=== PATIENT | female | born 1935 | race Asian ===

== ENCOUNTER 2020-08-11 15:58 | Inpatient (IN) | payer MEDICARE, OTHER ==
[~2020-08-11] VITALS: Ht 170.2 cm; Wt 52.2 kg
[2020-08-11] MEDS ORDERED: ONDANSETRON HCL/PF 4 MG/2 ML VIAL IVP ONE (17:00)
[2020-08-11] MEDS ORDERED: IV NS 0.9% 1,000 ML BAG IV ONE (17:00)
[2020-08-11] MEDS ORDERED: ONDANSETRON HCL/PF 4 MG/2 ML VIAL ONE (17:06)
[2020-08-11 17:23] LABS: BASOPHILS % (AUTO) 0.1 % (0.0-2.0); EOSINOPHILS % (AUTO) 0.1 % (0.0-6.0); HEMATOCRIT 30 % (33-45); HEMOGLOBIN 9.8 g/dL (11.5-14.8); LYMPHOCYTES # (AUTO) 0.3 /CMM (0.8-4.8); LYMPHOCYTES % (AUTO) 4.3 % (20.0-44.0); MEAN CORPUSCULAR HGB CONC 33 g/dl (31.0-36.0); MEAN CORPUSCULAR VOLUME 97 fL (82-100); MONOCYTES # (AUTO) 0.6 /CMM (0.1-1.30); MONOCYTES % (AUTO) 7.8 % (2.0-12.0); NEUTROPHILS # (AUTO) 6.2 /CMM (1.8-8.9); NEUTROPHILS % (AUTO) 87.7 % (43.0-81.0); PLATELET COUNT (AUTO) 201 /CMM (150-450); RED BLOOD CELL COUNT(AUTO) 3.05 MIL/uL (4.0-5.2)
--- NOTE | 2020-08-11 17:25 | NUR ---
PT AT [facility]
[2020-08-11 17:37] LABS: ALANINE AMINOTRANSFERASE 13 U/L (12-78); ALBUMIN 3.3 g/dL (3.4-5.0); ALKALINE PHOSPHATASE 90 U/L (46-116); ASPARTATE AMINOTRANSFERASE 21 U/L (15-37); BILIRUBIN,DIRECT 0.2 mg/dL (0.0-0.2); BILIRUBIN,TOTAL 0.9 mg/dL (0.2-1.0); CALCIUM, SERUM 8.6 mg/dL (8.5-10.1); CARBON DIOXIDE 23 mmol/L (21-32); CHLORIDE 107 mmol/L (98-107); GLUCOSE 148 mg/dL (74-106); LIPASE 72 U/L (73-393); POTASSIUM 3.6 mmol/L (3.5-5.1); SODIUM SERUM 147 mmol/L (136-145); TOTAL PROTEIN, SERUM 7.3 g/dL (6.4-8.2); UREA NITROGEN, BLOOD 62 mg/dL (7-18)
--- NOTE | 2020-08-11 18:15 | NUR ---
CALLED DR. WELCH ON-CALL FOR SURGERY, TRANSFERRED CALL TO DR. LAZAR.
--- NOTE | 2020-08-11 18:15 | NUR ---
Umang gilbert in ED - 08/11/20 at 1857 by AZAR CALLED RE[facility] ON-CALL SURGERY, TRANSFERRED CALL TO DR. LAZAR.
[2020-08-11] MEDS ORDERED: PIPERACILLIN /TAZOBACTAM 2.25 G in IV D5W 50 ML IV ONE (18:30)
[2020-08-11] MEDS ORDERED: CALC-1143 PO (18:38)
[2020-08-11] MEDS ORDERED: FURO-145 PO (18:38)
[2020-08-11] MEDS ORDERED: ROSU20TA2 PO (18:38)
[2020-08-11] MEDS ORDERED: MEMA10TA PO (18:38)
[2020-08-11] MEDS ORDERED: LOSA25TA27 PO (18:38)
[2020-08-11] MEDS ORDERED: CHOL200010 PO (18:38)
[2020-08-11] MEDS ORDERED: DONE10TA44 PO (18:38)
[2020-08-11] MEDS ORDERED: ALEN70TA69 PO (18:38)
[2020-08-11] MEDS ORDERED: NAPR-1009 PO (18:38)
--- NOTE | 2020-08-11 19:10 | NUR ---
pt ambulated to bathroom with min assist
[2020-08-11 19:21] LABS: BILIRUBIN,URINE SMALL (NEGATIVE); BLOOD, URINE Large Ery/uL (NEGATIVE); COLOR,URINE DARK YELLOW (YELLOW); LEUKOCYTE ESTERASE ,URINE Trace (NEGATIVE); NITRITE, URINE Negative (NEGATIVE); PROTEIN,URINE 100 mg/dl (NEGATIVE); UGLUCOSE Negative (NEGATIVE); UROBILINOGEN,URINE 0.2 EU/dL (0.2)
--- NOTE | 2020-08-11 19:31 | NUR ---
LIANNA (VACCINES SOLUTIONS SPECIALIST) CONTACT INFORMATION: [phone]
[2020-08-11 19:32] LABS: RBC,URINE 21-50 /HPF (0-2)
[2020-08-11 19:33] LABS: BACTERIA,URINE 2+ /HPF (None Seen); SQUAMOUS EPITHELIAL CELL,UR Few /HPF (None Seen)
[2020-08-11 20:00] VITALS: BP 99/53
--- NOTE | 2020-08-11 20:01 | NUR ---
ATTEMPTED TO CONTACT INFANT BABYSITTER LIANNA ([phone]) FOR MD TO MD WITH DR. SOLIS. LEFT MESSAGE, WILL FOLLOW UP
[2020-08-11] MEDS ORDERED: PIPERACILLIN /TAZOBACTAM 3.375 G VIAL IV ONE (20:07)
--- NOTE | 2020-08-11 20:10 | NUR ---
Umang gilbert in ED - 08/11/20 at 2050 by SIMEON BED ASSIGNMENT 107 MS
--- NOTE | 2020-08-11 20:24 | NUR ---
ATTEMPTED TO INSERT NGT BUT NOT SUCCESSFULL. WILL TRY AGAIN
[2020-08-11 20:33] VITALS: BP 99/53
[2020-08-11] MEDS ORDERED: Z GUARD REMEDY 2 OZ OINT TP PRN (21:00)
[2020-08-11] MEDS ORDERED: ZOLPIDEM TARTRATE 5 MG TABLET PO PRN (21:00)
[2020-08-11] MEDS ORDERED: HYDROCODONE/APAP 5/325MG TABLET PO PRN (21:00)
[2020-08-11] MEDS ORDERED: MAGNESIUM HYDROXIDE 30 ML UDC PO PRN (21:00)
[2020-08-11] MEDS ORDERED: ACETAMINOPHEN 325 MG TABLET PO PRN (21:00)
[2020-08-11] MEDS ORDERED: MAG HYDROX/AL HYDROX/SIMETH 30 ML UDC PO PRN (21:00)
[2020-08-11] MEDS ORDERED: ONDANSETRON HCL/PF 4 MG/2 ML VIAL IVP PRN (21:00)
--- NOTE | 2020-08-11 22:10 | NUR ---
report given to jayson morejon for jairo
--- NOTE | 2020-08-11 22:20 | NUR ---
PT BEING TRANSPORTED TO UNIT ON [facility] WITH EMT AT BEDSIDE. PT IS IN STABLE CONDITION FOR TRANSPORT.
--- NOTE | 2020-08-12 00:33 | NUR ---
MS/TRANSPLANT NURSE PRACTITIONER NOTE Patient arrived via gurney 2032. VS: BP99/53 T97.1 P80 R18 [id number]% on room air. Patient is A/O x2, on bedrest. Breath sounds even, clear, unlabored. No signs of acute distress or SOB. Patient denies pain, nausea, vomiting, diarrhea. Afebrile. Mucous membranes pink and moist. Lips intact. PERRLA. Sensations intact. No numbness or tingling. CRP <3seconds. Skin warm, pink, dry, intact. No edema. IV site RFA 22g running IV fluids as ordered. No signs of redness or infiltration. NG tube in place at 57 cm, connected to intermittent suction. Gastric content is brown. Addendum: 08/12/20 at 0100 by CATHY BHAKTA RN *Note was not finished. Accidentally saved. Patient is incontinent. Last BM was 08/11. Abdomen small, round, non-tender. BS hypoactive. Admission documented. Belongings and valuables documented. Bed in low position, wheels locked, side rails up x2, call light within reach. Bed alarm on.
[2020-08-12] MEDS: IV D5/0.45 NACL 1,000 ML IV PRN ×2 (03:17→12:25)
[2020-08-12 06:24] LABS: BASOPHILS % (AUTO) 0.1 % (0.0-2.0); EOSINOPHILS % (AUTO) 0.2 % (0.0-6.0); HEMATOCRIT 28 % (33-45); HEMOGLOBIN 9.2 g/dL (11.5-14.8); LYMPHOCYTES # (AUTO) 0.3 /CMM (0.8-4.8); LYMPHOCYTES % (AUTO) 4.8 % (20.0-44.0); MEAN CORPUSCULAR HGB CONC 33 g/dl (31.0-36.0); MEAN CORPUSCULAR VOLUME 95 fL (82-100); MONOCYTES # (AUTO) 0.5 /CMM (0.1-1.30); MONOCYTES % (AUTO) 7.9 % (2.0-12.0); NEUTROPHILS # (AUTO) 5.6 /CMM (1.8-8.9); PLATELET COUNT (AUTO) 175 /CMM (150-450); WHITE BLOOD COUNT (AUTO) 6.4 K/uL (4.3-11.0)
--- NOTE | 2020-08-12 06:46 | NUR ---
MS/RN CLOSING NOTE Patient is A/O x2, on bedrest. Breath sounds even, clear, unlabored. No signs of acute distress or SOB. PERRLA. Sensations intact. No numbness or tingling. CRP <3seconds. Skin warm, pink, dry, intact. No edema. IV site RFA 22g running IV fluids as ordered. No signs of redness or infiltration. NG tube in place at 57 cm, output 1750 ml, brown, connected to intermittent suction. Patient is incontinent. 1 BM noted, brown and soft. Bed in low position, wheels locked, side rails up x2, call light within reach.
[2020-08-12 07:00] LABS: CALCIUM, SERUM 7.5 mg/dL (8.5-10.1); CARBON DIOXIDE 22 mmol/L (21-32); CHLORIDE 107 mmol/L (98-107); CREATININE 3.6 mg/dL (0.6-1.3); GLUCOSE 147 mg/dL (74-106); MAGNESIUM 2.2 mg/dL (1.8-2.4); PHOSPHORUS 4.5 mg/dL (2.5-4.9); POTASSIUM 3.2 mmol/L (3.5-5.1); SODIUM SERUM 147 mmol/L (136-145); UREA NITROGEN, BLOOD 79 mg/dL (7-18)
[2020-08-12 07:20] LABS: CHOLESTEROL 83 mg/dL (<200); HDL CHOLESTEROL 52 mg/dL (40-60); LDL 25 mg/dL (0-99); THYROID STIMULATING HORMONE 2.235 uIU/mL (0.358-3.74); TRIGLYCERIDES 63 mg/dL (30-150)
--- NOTE | 2020-08-12 07:30 | NUR ---
RN OPENING NOTE Patient is resting in bed, A/o x2, showing no signs of acute distress or SOB, stable on RA. NGT was found on the floor. When I asked the patient if she pulled out the NG she stated, "I don't know, I don't remember." Patient is able to state her name and knows that she is in the hospital. Will notify MD and reinsert NG tube. RFA#22g is clean and intact running D51/2NS @100mml/hr. Bed is in lowest position, side rails x3 in upright position, call light is within reach, fall safety and aspiration precautions enforced. Will continue with plan of care.
[2020-08-12 08:00] VITALS: BP 108/65
[2020-08-12] MEDS ORDERED: PANTOPRAZOLE 40 MG VIAL IV SCH (09:00)
--- NOTE | 2020-08-12 10:38 | NUR ---
RN NOTE Ok per Dr. Daley to order Potassium IV 20meq to replace a potassium level of 3.2. Orders repeated back and will carry out.
--- NOTE | 2020-08-12 11:11 | NUR ---
RN NOTE NGT inserted in the left nare 57cm. CXR confirmed placement: IMPRESSION: 1. Nasogastric tube in the stomach. 2. Slight interstitial pneumonitis vs congestion similar to 08/11/2020 Will start patient on low intermittent suction as ordered.
--- NOTE | 2020-08-12 12:00 | NUR ---
RN NOTE Patient is desturating to 88% on RA. PAtient placed on 3L NC saturating 92-94%. Patient is from [place], only rapid test was done upon admission. No record of PCR from chart. Called [facility] and social secretary said they will call me back if there is a nurse available to speak with me in regards to PCR test. Per Dr. Daley, if PCR is not done, then order PCR and transfer to covid floor for PUI. Will continue with plan of care.
[2020-08-12] MEDS: POTASSIUM CL. PREMIX PERIPHER. 50 ML IV SCH ×2 (12:22→13:30)
[2020-08-12 13:00] VITALS: BP 110/76
[2020-08-12] MEDS: MORPHINE SULFATE INJ 2 MG/ML DISP.SYRIN IV PRN (13:21)
--- NOTE | 2020-08-12 14:00 | NUR ---
RN NOTE COVID PCR swab done at [facility] was done on 08/06. Per protocol, patient needs a more recent PCR swab. PCR ordered and will transfer patient To [facility] room 112. aware.
--- NOTE | 2020-08-12 14:14 | NUR ---
COVID PCR SPECIMEN SENT TO LAB
[2020-08-12 14:16] VITALS: BP 104/60
--- NOTE | 2020-08-12 15:49 | NUR ---
RN NOTE Patient transferred to [facility] room 112. Patient is a/ox2, in no acute distress, on 3L NC saturating 93-94%. Endorsed to Alonzo PEPE for LUCINDA.
[2020-08-12 20:00] VITALS: BP 100/56
--- NOTE | 2020-08-12 20:00 | NUR ---
print and pattern designer opening note Received pt in bed. asleep but easily arousable .Breathing even and unlabored in 3lpm of 02 andres ma. ngt noted on left nare marking at 55, on low intermittent suction. Small amount of brown drainage noted on tubing Denies any pain or discomfort. rfa #22 noted patent and intact. IV fluids infusing well. Kept clean and dry. Repositioned. Bed in lowest position. Call light within reach.Will continue to monitor.
[2020-08-13] VITALS: BP 111/57
--- NOTE | 2020-08-13 00:03 | NUR ---
wood patternmaker apprentice note Informed Dr. Castillo regarding patient's VTE score of 3. Per MD, doctor in am will decide if he/she wants to start pt on anticoagualant. Will endorse to am nurse.
[2020-08-13] MEDS: IV D5/0.45 NACL 1,000 ML IV PRN ×2 (01:16→14:00)
[2020-08-13 04:00] VITALS: BP 106/54
--- NOTE | 2020-08-13 06:45 | NUR ---
ortho rn closing note Patient in bed, sleeping but easily arousable. A/0 x2. Breathing even and unlabored with no sob or acute distress noted. Denies any pain or discomfort. RFA #22g patent and intact. Iv fluids infusing well. ngtube patent. small amount of output. unable to accurately measure , output is just in the tubings. Marking at 55, tip of nose. All needs rendered. Call light within reach. Srx2 up. Bed in lowest position. Repositioned q2. Will endorse to am nurse for continuity of care.
--- NOTE | 2020-08-13 07:30 | NUR ---
Tele-monitor reading is SR 85-88
--- NOTE | 2020-08-13 07:30 | NUR ---
RN OPENING NOTE Received patient in bed, A/O x 3, on NC @3L, tolerating well, SPO2 is 100%, O2 monitor at bed site, no SOB or distress noted, denies pain or discomfort at this moment, NG tuber noted in patient nares, connected to INT LOW suction, draining brown yellow gastric juice. NPO status noted, IV line present on R FA, intact , patent, flushes well, no s/sx of infiltration or infection noted. Safety measures in place, HOB elevated, bed is locked, in lowest position, bed alarm is on, IV pump checked, calm light in reach, will cont to monitor
[2020-08-13 08:00] VITALS: BP 112/59
--- NOTE | 2020-08-13 08:30 | NUR ---
Per Dr Teto SALDIVAR to titrate O2 to 2.0, tolerated well, SPO@ remains 100%, no distress or SOB noted, will cont to monitor frequently
[2020-08-13] MEDS ORDERED: PANTOPRAZOLE 40 MG VIAL IV SCH (09:00)
[2020-08-13] MEDS: FAMOTIDINE/PF INJ 20 MG/2 ML VIAL IV SCH (09:05)
[2020-08-13] MEDS ORDERED: BARIUM SULFATE 98% 135 ML SUSP.RECON PO ONE (11:01)
[2020-08-13] MEDS ORDERED: DIATR MEGLU/DIATRIZOATE SODIUM 120 ML BOTTLE (GASTROGRAPHIN) ONE ×2 (11:01→13:51)
--- NOTE | 2020-08-13 11:15 | NUR ---
PATIENT WENT TO FOLLOW THROUGH BOWEL PROCEDURE VIA BED WITH XRAY TECHNICIANS
--- NOTE | 2020-08-13 11:30 | NUR ---
PATIENT CLEANED AND REPOSITION, LINEN AND GOWN CHANGED
[2020-08-13 11:56] LABS: CALCIUM, SERUM 6.6 mg/dL (8.5-10.1); CARBON DIOXIDE 21 mmol/L (21-32); CHLORIDE 104 mmol/L (98-107); CREATININE 4.8 mg/dL (0.6-1.3); GLUCOSE 116 mg/dL (74-106); POTASSIUM 3.6 mmol/L (3.5-5.1); SODIUM SERUM 141 mmol/L (136-145)
[2020-08-13 11:59] LABS: UREA NITROGEN, BLOOD 106 mg/dL (7-18)
[2020-08-13 12:00] VITALS: BP 105/59
[2020-08-13 13:38] LABS: IRON, SERUM 18 ug/dl (50-175); TOTAL IRON BINDING CAPACITY 158 ug/dl (250-450)
--- NOTE | 2020-08-13 14:10 | NUR ---
Patient will have xray of small bowel follow though at bed site, [place] at bed site
--- NOTE | 2020-08-13 15:30 | NUR ---
PER RADIOLOGY PATY STOP SUCTION DURING IMAGING INTERVALS, WILL CALL US BACK AND INFORM WHEN WE CAN RESUME INT LOW SUCTION
--- NOTE | 2020-08-13 15:30 | NUR ---
PATIENT CLEANED AND REPOSITION , LINEN AND GOWN CHANGED
[2020-08-13 15:33] LABS: FERRITIN 688 ng/mL (8-388)
[2020-08-13 16:00] VITALS: BP 108/53
--- NOTE | 2020-08-13 19:09 | NUR ---
RN CLOSING NOTES PATENT REMAINS IN BED, RESTING COMFORTABLY, TOLERATING O2 THERAPY AND IV HYDRATION WELL, COMFORT NEEDS ATTENDED, BED IN LOWEST POSITION, CALL LIGHT IN REACH, BED ALARM IS ON, STILL DOING X-RAY IMAGING WITH INTERVAL OF 40-60 MIN, WILL ENDORSE TO PM SHIFT RN FOR LUCINDA
[2020-08-13 20:00] VITALS: BP 101/54
--- NOTE | 2020-08-13 20:00 | NUR ---
powder line repairer opening note Received pt in bed, awake a/ox2. Breathing even and labored with no sob or acute distress noted. Denies any pain or discomfort. Rfa iv site patent and intact. iv fluids infusing well. ngt in placed in left nare. marking at 55. Kept clean and dry. All needs rendered. Repositioned. Bed in lowest position. Will continue to monitor
--- NOTE | 2020-08-13 20:40 | NUR ---
hims manager note Upon doing rounds, patient noted complaining of pain in bladder area and wanting to pee. Abdomen slightly distended. Checked bladder via bladder scan and noted 383ml of urine. Notified Dr. Castillo pt was given gastrografin for small bowel follow through. Per MD, observe patient.
[2020-08-14] VITALS: BP 122/57
--- NOTE | 2020-08-14 | NUR ---
supervisor telephone answering service note Patient assisted to bedside commode. Noted with large hard bm and 100ml urine output. Pt now resting in bed, no complaints of pain. Will continue to monitor.
[2020-08-14] MEDS: IV D5/0.45 NACL 1,000 ML IV PRN ×2 (02:59→18:51)
[2020-08-14 04:00] VITALS: BP 126/63
--- NOTE | 2020-08-14 05:50 | NUR ---
rn training note pt noted with dislodged clamped ngtube. Breathing even and unlabored with no sob or acute distress noted. 02 saturation at 96%. Breath sounds clear. Asked patient how ngtube came out. pt statet "i dont know how it happened.
--- NOTE | 2020-08-14 07:00 | NUR ---
front end developer note Reported to Dr. Castillo patient pulled out NGtube. New order noted ok to reinsert and chest xray for placement verification. New order noted and carried out.
--- NOTE | 2020-08-14 07:30 | NUR ---
RN OPENING NOTE Received patient in bed, A/O x 2-3 on NC @2L, tolerating well, SPO2 is 98%, O2 monitor at bed site, no SOB or distress noted, denies pain or discomfort at this moment, NPO status noted, IV line present on R FA, intact , patent, flushes well, no s/sx of infiltration or infection noted. Safety measures in place, HOB elevated, bed is locked, in lowest position, bed alarm is on, IV pump checked, calm light in reach, will cont to monitor
--- NOTE | 2020-08-14 07:42 | NUR ---
Station Jailer note pt in bed. alert oriented x2. breathing even and unlabored with no sob or acute distress noted on RA. 02 sat 98%. Denies any pain and discomfort. Right forearm IV patent and intact. Iv fluids infusing well. Kept clean and dry. All needs rendered . Call light within reach. Bed in lowest position. Endorsed to Margaret for continuity of care.
[2020-08-14 08:00] VITALS: BP 119/62
[2020-08-14 10:14] LABS: CALCIUM, SERUM 6.7 mg/dL (8.5-10.1); CARBON DIOXIDE 18 mmol/L (21-32); CHLORIDE 105 mmol/L (98-107); GLUCOSE 112 mg/dL (74-106); POTASSIUM 3.9 mmol/L (3.5-5.1); SODIUM SERUM 142 mmol/L (136-145)
[2020-08-14 10:29] LABS: UREA NITROGEN, BLOOD 122 mg/dL (7-18)
[2020-08-14] MEDS: FAMOTIDINE/PF INJ 20 MG/2 ML VIAL IV SCH (10:52)
[2020-08-14 12:00] VITALS: BP 119/68
[2020-08-14 12:12] LABS: BASOPHILS % (AUTO) 0.3 % (0.0-2.0); EOSINOPHILS % (AUTO) 0.4 % (0.0-6.0); HEMATOCRIT 32 % (33-45); HEMOGLOBIN 10.5 g/dL (11.5-14.8); LYMPHOCYTES # (AUTO) 0.2 /CMM (0.8-4.8); LYMPHOCYTES % (AUTO) 3.7 % (20.0-44.0); MEAN CORPUSCULAR HGB CONC 33 g/dl (31.0-36.0); MEAN CORPUSCULAR VOLUME 95 fL (82-100); MONOCYTES # (AUTO) 0.3 /CMM (0.1-1.30); MONOCYTES % (AUTO) 4.3 % (2.0-12.0); NEUTROPHILS # (AUTO) 5.6 /CMM (1.8-8.9); NEUTROPHILS % (AUTO) 91.3 % (43.0-81.0); PLATELET COUNT (AUTO) 198 /CMM (150-450); RED BLOOD CELL COUNT(AUTO) 3.37 MIL/uL (4.0-5.2); WHITE BLOOD COUNT (AUTO) 6.2 K/uL (4.3-11.0)
[2020-08-14] MEDS: SOD FERRIC GLUC 125 MG in IV NS 0.9% 100 ML IV SCH (14:47)
--- NOTE | 2020-08-14 15:30 | NUR ---
patient agreed to do HD cath placement, verbally agreed, sign consent
--- NOTE | 2020-08-14 15:36 | NUR ---
NG tube inserted, placement checked with auscultation Addendum: 08/14/20 at 2046 by Margaret Durham RN NG tube inserted, placement checked with auscultation AND chest xray
[2020-08-14] MEDS ORDERED: DIATR MEGLU/DIATRIZOATE SODIUM 30 ML BOTTLE (GASTROGRAPHIN) ONE (15:41)
[2020-08-14 16:00] VITALS: BP 117/89
[2020-08-14 16:36] LABS: ALBUMIN 2.5 g/dL (3.4-5.0); BILIRUBIN,DIRECT 0.3 mg/dL (0.0-0.2); BILIRUBIN,TOTAL 0.8 mg/dL (0.2-1.0); MAGNESIUM 2.4 mg/dL (1.8-2.4); PHOSPHORUS 6.1 mg/dL (2.5-4.9); TOTAL PROTEIN, SERUM 6.6 g/dL (6.4-8.2)
--- NOTE | 2020-08-14 16:56 | NUR ---
HD cath in R femoral. dressing intact
--- NOTE | 2020-08-14 19:00 | NUR ---
CONSENT FORM OBTAINED FROM DAUGHTER WILEY, PLACED IN CHART
[2020-08-14 19:42] LABS: BILIRUBIN,URINE SMALL (NEGATIVE); BLOOD, URINE TRACE-INTA Ery/uL (NEGATIVE); COLOR,URINE YELLOW (YELLOW); LEUKOCYTE ESTERASE ,URINE NEGATIVE (NEGATIVE); NITRITE, URINE NEGATIVE (NEGATIVE); PROTEIN,URINE 100 mg/dl (NEGATIVE); UGLUCOSE NEGATIVE (NEGATIVE); UROBILINOGEN,URINE 0.2 EU/dL (0.2)
--- NOTE | 2020-08-14 19:45 | NUR ---
RN CLOSING NOTES PATENT REMAINS IN BED, RESTING COMFORTABLY, TOLERATING O2 THERAPY AND IV HYDRATION WELL,DE LEON CATH DRAINING DARK YELLOW URINE BY GRAVITY, PATENT COMFORT NEEDS ATTENDED, BED IN LOWEST POSITION, CALL LIGHT IN REACH, BED ALARM IS ON, WILL ENDORSE TO PM SHIFT RN FOR LUCINDA
--- NOTE | 2020-08-14 20:15 | NUR ---
RECEVED PATIENT IN BED, AWAKE, RESPONDS WHEN ASKED HER NAME, NO S/S OF DISTRESS NOTED. NOT IN PAIN. HOB ELEVATED. CALL LIGHT WITHIN REACH. BED ALARM TURNED ON. BED IN LOWEST AND LOCKED POSITION. CALL LIGHT WITHIN REACH. WITH RIGHT FEMORAL HD CATHETER INTACT WITH SMALL AMOUNT BLOOD, DRESSING IS INTACT. WITH RIGHT NARE NGT INTACT CONNECTED TO THE LOW INTERMITTENT SUCTION, WITH YELLOWISH OUTPUT ON THE TUBING. WITH DE LEON CATHETER INTACT DRAINING VERY SMALL AMOUNT OF YELLOW URINE.
[2020-08-14 20:17] LABS: CREATININE, URINE 75.7 MG/DL (30.0-125.0); URINE TOTAL PROTEIN 277.9 mg/dL (0-11.9)
[2020-08-14 20:22] LABS: BACTERIA,URINE 4+ /HPF (None Seen); URINE AMORPHOUS URATE Moderate /HPF (None Seen)
[2020-08-14 20:24] LABS: FINE GRANULAR CASTS,URINE FEW /LPF (None Seen)
[2020-08-14 20:28] LABS: EOSINOPHIL,URINE None Seen
--- NOTE | 2020-08-14 20:54 | NUR ---
REPORTS GIVEN TO MY STEVEN FOR CONTINUITY OF CARE.
--- NOTE | 2020-08-14 20:55 | NUR ---
RN NOTES RECEIVED REPORT FROM MY BRUNSON FOR LUCINDA. RECEIVED PT A/OX 2-3, COMFORTABLY IN BED. PATIENT IN NO S/SX OF ACUTE DISTRESS AT THIS TIME. NO SOB NOTED. PATIENT'S BREATHING IS EVEN AND UNLABORED. PT HAS ONGOING DIALYSIS WITH ACCOUNT COORDINATOR AT THE TIME OF RECEIVED. PATIENT IS ON 2L OF OXYGEN VIA NC; TOLERATING WELL. NOTED NGT IN PLACED ON THE R NARE CONNECTED TO LOW INTERMITTENT SUCTION.PLACEMENT VERIFIED WITH AUSCULTATION. PATIENT ON NPO AT THIS TIME. NOTED IV SITE O R FA #[id number] ; PATENT, INTACT AND FLUSHING WELL; NO S/S OF INFECTION OR INFILTRATION. WITH IV FLUID RUNNING ORDERED. PT ALSO HAS R FEMORAL HD CATH; INTACT. DE LEON CATH IN PLACE, MINIMAL YELLOW COLORED URINE OUTPUT. PATIENT WITH VT PUMP ON .SAFETY MEASURES HAVE BEEN PROVIDED AND IMPLEMENTED. PATIENT BED ALARM IS ON. HEAD OF BED ELEVATED. BED IS LOCKED, IN LOWEST POSITION AND SIDE RAILS UP. CALL LIGHT WITHIN REACH OF THE PATIENT. APPLICABLE ISOLATION PRECAUTIONS IN PLACE. WILL CONTINUE TO MONITOR AND REASSESS FOR ANY CHANGES AND WILL CARRY OUT ANY ONGOING AND ACTIVE MD ORDER.
[2020-08-14 22:00] VITALS: BP 124/64
--- NOTE | 2020-08-14 22:45 | NUR ---
RN NOTES RECEIVED CALL FROM WILEY PANTOJA ([phone]) PT'S DAUGHTER ( PRIMARY PEROSN TO NOTIFY BASED ON THE CHART) WANTS TO GIVE CONSENT/AUTH TO BOTH SIBLINGS <MISTI THOMAS ) AND SHAYY RAMOS ([phone])> IF THEY WILL BE CALLING THEIR MOM TO TOUCH BASE WITH PATIENT. GLASSWARE SELECTOR MADE AWARE.
--- NOTE | 2020-08-14 23:30 | NUR ---
RN NOTES POWERHOUSE MECHANIC INFORMED PRIMARY RN THAT SESSION DONE, NO OUTPUT AND JUST CLEARANCE, BP IS AT 148/52 AND HR IS AT 85. PT TOLERATED PROCEDURE. VISUAL DISPLAY ASSOCIATE MADE AWARE. PT NOTED TO BE NAUSEOUS WILL ADMINISTER PRN MEDS. NEEDED. VISUAL DISPLAY ASSOCIATE MADE AWARE.
--- NOTE | 2020-08-14 23:40 | NUR ---
RN NOTES RN CHECK PLACEMENT of NG-TUBE ( R NARE), PLACEMENT VERIFIED AND CONFIRMED VIA AUSCULTATION WITH ANOTHER RN (MY HUMPHREY). NGT CONNECTED TO LOW INTERMITTENT SUCTION. WILL CONTINUE TO ASSESS AND MONITOR THROUGHOUT THE SHIFT.
[2020-08-14] MEDS: MORPHINE SULFATE INJ 2 MG/ML DISP.SYRIN IV PRN (23:57)
[2020-08-15] VITALS (41 sets, daily range): BP systolic 51–134; BP diastolic 18–93
--- NOTE | 2020-08-15 02:00 | NUR ---
RN NOTES NO CHANGE IN PATIENT CONDITION AT THIS TIME PATIENT VITALS STABLE, NO SIGNS OF ACUTE RESPIRATORY DISTRESS. STOCK CONTROL CLERK MADE AWARE. WILL CONTINUE TO MONITOR AND REASSESS FOR ANY CHANGES THROUGHOUT THE SHIFT.
--- NOTE | 2020-08-15 05:00 | NUR ---
PATIENT CAME FROM [facility], AWAKE. REPORTS RECEIVED FROM MY STEVEN. NO S/S OF DISTRESS NOTED. NO COMPLAIN OF PAIN. CALL LIGHT WOTHIN REACH. BED IN LOWEST AND LOCKED POSITION. BED ALARM ON. NPO. WITH DE LEON CATHETER INTACT.
--- NOTE | 2020-08-15 05:00 | NUR ---
RN NOTES PATIENT TRANSFERRED TO ROOM 309 3WEST USING THE ACLS PROTOCOL. PATIENT SAFETY WAS MAINTAINED, BEDSIDE REPORT WAS GIVEN TO MY BRUNSON;ENDORSED ALL PERTINENT INFO AND TREATMENT INFO ABOUT PATIENT. ALL PATIENT BELONGINGS AND MEDS TRANSFERRED WITH THE PATIENT. PATIENT SAFETY WAS MAINTAINED, MY RUDOLPH RECEIVED THE PATIENT AND WILL CONTINUE CARE. STATE AUDITOR MADE AWARE.
--- NOTE | 2020-08-15 05:40 | NUR ---
SCD'S PLACED ON BOTH LEGS.
--- NOTE | 2020-08-15 06:01 | NUR ---
CLARIFIED TO DR INGRAM RE: IF NGT WILL BE CONNECTED TO LOW INTERMITTENT SUCTION.
[2020-08-15] MEDS: IV D5/0.45 NACL 1,000 ML IV PRN ×2 (06:51→20:43)
--- NOTE | 2020-08-15 07:30 | NUR ---
COMPUTER TECHNOLOGY TEACHER OPENING NOTES Pt remains A/O x 2-3 on NC @2L, tolerating well, SPO2 is 98%, O2 monitor at bed site, no SOB or distress noted, denies pain or discomfort at this moment, NPO status noted, IV line present on R FA, intact , patent, flushes well, no s/sx of infiltration or infection noted. Safety measures in place, HOB elevated, bed is locked, in lowest position, bed alarm is on, IV pump checked, calm light in reach, will continue to monitor
[2020-08-15 08:09] LABS: ALANINE AMINOTRANSFERASE 20 U/L (12-78); ALBUMIN 2.3 g/dL (3.4-5.0); ALKALINE PHOSPHATASE 112 U/L (46-116); ASPARTATE AMINOTRANSFERASE 42 U/L (15-37); BILIRUBIN,TOTAL 0.6 mg/dL (0.2-1.0); CARBON DIOXIDE 19 mmol/L (21-32); CHLORIDE 103 mmol/L (98-107); CREATININE 4.7 mg/dL (0.6-1.3); GLUCOSE 105 mg/dL (74-106); MAGNESIUM 2.3 mg/dL (1.8-2.4); PHOSPHORUS 4.4 mg/dL (2.5-4.9); POTASSIUM 3.8 mmol/L (3.5-5.1); SODIUM SERUM 142 mmol/L (136-145); TOTAL PROTEIN, SERUM 6.5 g/dL (6.4-8.2)
[2020-08-15 08:22] LABS: UREA NITROGEN, BLOOD 87 mg/dL (7-18)
[2020-08-15 08:31] LABS: BASOPHILS % (AUTO) 0.1 % (0.0-2.0); EOSINOPHILS % (AUTO) 0.4 % (0.0-6.0); HEMATOCRIT 32 % (33-45); HEMOGLOBIN 10.4 g/dL (11.5-14.8); LYMPHOCYTES # (AUTO) 0.3 /CMM (0.8-4.8); LYMPHOCYTES % (AUTO) 6.6 % (20.0-44.0); MEAN CORPUSCULAR HGB CONC 33 g/dl (31.0-36.0); MEAN CORPUSCULAR VOLUME 96 fL (82-100); MONOCYTES # (AUTO) 0.2 /CMM (0.1-1.30); MONOCYTES % (AUTO) 4.9 % (2.0-12.0); NEUTROPHILS # (AUTO) 4.4 /CMM (1.8-8.9); PLATELET COUNT (AUTO) 187 /CMM (150-450); RED BLOOD CELL COUNT(AUTO) 3.32 MIL/uL (4.0-5.2)
[2020-08-15] MEDS ORDERED: HEPARIN SODIUM, PORCINE 5000 UNITS/1 ML VIAL SQ SCH (09:00)
[2020-08-15] MEDS: FAMOTIDINE/PF INJ 20 MG/2 ML VIAL IV SCH (09:26)
[2020-08-15 10:33] LABS: BAND % (MANUAL) 4 % (0.0-5.0); LYMPHOCYTES % (MANUAL) 7 % (16-48); MONOCYTES % (MANUAL) 1 % (0-11.0); NEUTROPHILS % (MANUAL) 88 (42-76)
--- NOTE | 2020-08-15 13:27 | NUR ---
RECEIVED REPORT FROM PETER PEPE. PATIENT IN OR.
[2020-08-15] MEDS ORDERED: MIDAZOLAM HCL 2 MG/2ML VIAL ONE (13:31)
[2020-08-15] MEDS ORDERED: FENTANYL PF 250MCG/5ML AMPUL ONE (13:31)
[2020-08-15] MEDS ORDERED: HYDROMORPHONE INJ 2 MG/ML DISP.SYRIN ONE (13:31)
[2020-08-15] MEDS ORDERED: FAMOTIDINE/PF INJ 20 MG/2 ML VIAL IV ONE (13:32)
[2020-08-15] MEDS ORDERED: ROCURONIUM BROMIDE 50 MG/5 ML ONE (13:33)
[2020-08-15] MEDS ORDERED: METRONIDAZOLE 500MG/ NS 100ML 100 ML IV ONE (13:57)
--- NOTE | 2020-08-15 14:54 | NUR ---
PATIENT STILL IN OR [facility] IS ON HOLD FOR NOW.
--- NOTE | 2020-08-15 17:03 | NUR ---
RT NOTE PT RCVD FROM OR, INTUBATED VIA 7.0 ETT AND 21CM AT LIP. PT PLACED ON MECHANICAL VENT WITH SETTINGS GIVEN BY ANESTHESIOLOGIST. EQUAL CHEST RISE AND BREATH SOUNDS NOTED. SX DONE. PT ETT IS PATENT AND SECURE. VENT PLUGGED INTO RED OUTLET. VENT ALARMS ARE ON AND AUDIBLE. AMBU BAG AT BEDSIDE. NO SOB NOTED.
--- NOTE | 2020-08-15 17:42 | NUR ---
DEPUTY CHIEF SHERIFF NOTES RECEIVED PT FROM DR GALLARDO AND MAY RN TRANSFERRED FROM OR TO ICU BED 256. PT HAS LOW BP AND VERY HARD TO HAVE THE PULSE OX. PUT HER ON MONITOR . NG SUCTION IS ON AND PT IS INTUBATED. PER DR GALLARDO S ORDER OBTAINED X RAY FOR ETT TUBE PLACEMENT. PLACED PT ON [place] POSITION FOR LOW BP.
[2020-08-15] MEDS ORDERED: IV NS 0.9% 500 ML IV ONE (18:00)
[2020-08-15 18:15] LABS: CALCIUM, SERUM 6.7 mg/dL (8.5-10.1); CARBON DIOXIDE 19 mmol/L (21-32); CHLORIDE 106 mmol/L (98-107); CREATININE 4.8 mg/dL (0.6-1.3); GLUCOSE 92 mg/dL (74-106); POTASSIUM 4.1 mmol/L (3.5-5.1); SODIUM SERUM 143 mmol/L (136-145)
[2020-08-15 18:20] LABS: UREA NITROGEN, BLOOD 93 mg/dL (7-18)
[2020-08-15] MEDS: METOCLOPRAMIDE HCL 10 MG/2 ML VIAL IV SCH (18:20)
[2020-08-15] MEDS: METRONIDAZOLE 500MG/ NS 100ML 500 MG in PREMIX 1 EA IV SCH (19:03)
--- NOTE | 2020-08-15 19:11 | NUR ---
PATIENT WAS TRANSFERRED TO ICU.
--- NOTE | 2020-08-15 19:15 | NUR ---
WRAPPER OPENER NOTES CONTACTED DR GALLARDO FOR LOW BP AND ADMINISTRATED EPHEDRINE 10MG IVP AND NORSYNEPHRINE 0.2 MG IVP.
--- NOTE | 2020-08-15 19:15 | NUR ---
ICU/CONCRETER RECEIVED REPORT FROM POST OP NURSE. SATURATION WAS IN THE LOW 80'S AND BLOOD PRESSURE WAS IN THE 70'S TO 80'S. NOTIFIED THE CHARGE NURSE WHO CALLED THE TIMBER BUCKER FOR A PRESSURE. ALSO ORDERED A STAT ABG.
--- NOTE | 2020-08-15 19:25 | NUR ---
ICU/SPORTING GOODS SALES ASSOCIATE PT'S RECTAL TEMP WAS 95.4. A WARMING BLANKET WAS PLACED ON THE PT. WILL CLOSELY MONITOR THIS PT AND HER TEMP.
--- NOTE | 2020-08-15 19:31 | NUR ---
WAREHOUSE TECHNICIAN NOTES REPORT GIVEN TO GREG PEPE. PT IS STABLE STILL ON VENT HAS DE LEON, A/O0 NON VERBAL. OPENS EYES WHEN NAME CALLED AND MOVES UPPER EXTREMITIES. VITALS 134/93 RR 17 HR 124 TEMP 94.9. PT IS ON BEAR HUGGER.
--- NOTE | 2020-08-15 19:59 | NUR ---
PT REC'D ORALLY INTUBATED VIA ETT 7.0 SECURED AT 21 CM AT THE LIP LINE. ON MECH VENT WITH NOTED SETTINGS. SX DONE ALARMS ARE SET AND AUDIBLE. VENT PLUGGED INTO RED OUTLET. AMBU BAG@ BEDSIDE. WILL CONTINUE TO MONITOR T/O THE SHIFT.
--- NOTE | 2020-08-15 20:30 | NUR ---
ICU/CORPORATE QUALITY ASSURANCE MANAGER PT WAS STARTED ON NILE FOR LOW PRESSURE BY CHARGE NURSE. CHARGE NURSE TO CLOSELY MONITOR THIS PT AND TITRATE ACCORDINGLY. 2030-ABG WAS RESULTED AND CALLED TO WRAPPER OPENER MD. THERE WERE NO NEW ORDERS OBTAINED.
[2020-08-15] MEDS: SOD FERRIC GLUC 125 MG in IV NS 0.9% 100 ML IV SCH (20:50)
[2020-08-15] MEDS: PHENYLEPHRINE 100 MG in IV NS 0.9% 240 ML IV PRN (21:11)
[2020-08-15 21:44] LABS: ABG BASE EXCESS -11.1 mmol/L; ABG OXYGEN SATURATION 98.9 % (92.0-98.5); ABG PH 7.304 (7.350-7.450); ABG PO2 378.7 mmHg (75.0-100.0); AaDO2 305.3 mmHg; COHb 0.3 % (0.5-1.5); MetHb 0.4 % (0.0-1.5); O2Hb 98.2 % (94.0-97.0); SITE, ABG Right Brachial; VT, ABG 450 mL
--- NOTE | 2020-08-15 22:30 | NUR ---
ICU/OBSTETRIC ASSISTANT PT WAS STARTED ON NILE BY CHARGE NURSE. THE NILE HAS BEEN TITRATED BY THE CHARGE NURSE. WILL CONTINUE TO CLOSELY MONITOR THIS PT AND HER BLOOD PRESSURE.
[2020-08-15] MEDS: ANCEF 1 GM/50 ML D5W IV SCH ×2 (22:42)
[2020-08-15 23:00] LABS: BASOPHILS % (AUTO) 0.2 % (0.0-2.0); EOSINOPHILS % (AUTO) 0.2 % (0.0-6.0); HEMATOCRIT 29 % (33-45); LYMPHOCYTES # (AUTO) 0.1 /CMM (0.8-4.8); LYMPHOCYTES % (AUTO) 7.5 % (20.0-44.0); MEAN CORPUSCULAR HGB CONC 31 g/dl (31.0-36.0); MEAN CORPUSCULAR VOLUME 98 fL (82-100); MONOCYTES % (AUTO) 0.7 % (2.0-12.0); NEUTROPHILS # (AUTO) 1.8 /CMM (1.8-8.9); NEUTROPHILS % (AUTO) 91.4 % (43.0-81.0); PLATELET COUNT (AUTO) 143 /CMM (150-450); RED BLOOD CELL COUNT(AUTO) 2.91 MIL/uL (4.0-5.2)
--- NOTE | 2020-08-15 23:35 | NUR ---
ICU/DENTAL INSTRUCTOR ABG POST 2 HOURS FROM THE FIRST ABG WHICH WAS DONE AT 1999, WAS RESULTS TO THE [place] AND LAKES BOATMAN WHO GAVE NO NEW ORDERS. WILL CONTINUE TO MONITOR THIS PT.
[2020-08-16] VITALS (85 sets, daily range): BP systolic 65–130; BP diastolic 33–77
--- NOTE | 2020-08-16 00:05 | NUR ---
ICU/PUBLIC HEALTH OUTREACH WORKER PT'S MIDNIGHT BLOOD SUGAR IS 114, THERE IS NO COVERAGE FOR THIS PER SLIDING SCALE ORDERED BY MD. WILL CONTINUE TO CLOSELY THIS PT'S SUGAR ORDERED BY MD AND HOSPITAL PROTOCOL. PT WAS TURNED AND REPOSTIONED FOR COMFORT AND CARE. Addendum: 08/17/20 at 0417 by CAITLYN HATCH LVN WRONG DATE
[2020-08-16] MEDS: METOCLOPRAMIDE HCL 10 MG/2 ML VIAL IV SCH ×5 (00:14→23:35)
--- NOTE | 2020-08-16 00:20 | NUR ---
ICU/SALES TRADER CHARGE NURSE STARTED SEDATION, DUE TO PT BEING RESTLESS AND GRABBING AT LINES. WILL CONTINUE TO MONITOR THIS PT.
[2020-08-16] MEDS: PROPOFOL 100 ML IV PRN ×2 (00:32→15:13)
[2020-08-16 00:54] LABS: BAND % (MANUAL) 6 % (0.0-5.0); LYMPHOCYTES % (MANUAL) 8 % (16-48); MONOCYTES % (MANUAL) 1 % (0-11.0); NEUTROPHILS % (MANUAL) 85 (42-76)
[2020-08-16] MEDS: METRONIDAZOLE 500MG/ NS 100ML 500 MG in PREMIX 1 EA IV SCH ×3 (01:55→17:33)
--- NOTE | 2020-08-16 02:49 | NUR ---
ICU/SOFTWARE DEVELOPER MANAGER CHARGE NURSE INCREASED SEDATION, DUE TO PT BEING RESTLESS AND GRABBING AT LINES. WILL CONTINUE TO MONITOR THIS PT.
--- NOTE | 2020-08-16 03:50 | NUR ---
ICU/OFFICE AIDE RT DECREASED THE FIO2 LOLY TO 80 FROM 100. WILL CLOSELY MONITOR THIS PT AND HER SATURATION.
[2020-08-16] MEDS: ANCEF 1 GM/50 ML D5W IV SCH ×6 (05:05→20:46)
[2020-08-16 05:14] LABS: BASOPHILS % (AUTO) 0.1 % (0.0-2.0); HEMATOCRIT 30 % (33-45); HEMOGLOBIN 9.9 g/dL (11.5-14.8); LYMPHOCYTES # (AUTO) 0.2 /CMM (0.8-4.8); LYMPHOCYTES % (AUTO) 1.7 % (20.0-44.0); MEAN CORPUSCULAR HGB CONC 34 g/dl (31.0-36.0); MEAN CORPUSCULAR VOLUME 93 fL (82-100); MONOCYTES # (AUTO) 0.1 /CMM (0.1-1.30); MONOCYTES % (AUTO) 0.8 % (2.0-12.0); NEUTROPHILS # (AUTO) 12.1 /CMM (1.8-8.9); NEUTROPHILS % (AUTO) 97.4 % (43.0-81.0); PLATELET COUNT (AUTO) 120 /CMM (150-450); RED BLOOD CELL COUNT(AUTO) 3.17 MIL/uL (4.0-5.2); WHITE BLOOD COUNT (AUTO) 12.4 K/uL (4.3-11.0)
[2020-08-16 05:18] LABS: ALANINE AMINOTRANSFERASE 21 U/L (12-78); ALKALINE PHOSPHATASE 107 U/L (46-116); ASPARTATE AMINOTRANSFERASE 80 U/L (15-37); BILIRUBIN,TOTAL 0.6 mg/dL (0.2-1.0); CALCIUM, SERUM 6.6 mg/dL (8.5-10.1); CARBON DIOXIDE 17 mmol/L (21-32); CHLORIDE 104 mmol/L (98-107); CREATININE 5.1 mg/dL (0.6-1.3); GLUCOSE 80 mg/dL (74-106); MAGNESIUM 1.8 mg/dL (1.8-2.4); PHOSPHORUS 5.3 mg/dL (2.5-4.9); POTASSIUM 3.7 mmol/L (3.5-5.1); SODIUM SERUM 142 mmol/L (136-145); TOTAL PROTEIN, SERUM 5.5 g/dL (6.4-8.2)
[2020-08-16 05:23] LABS: UREA NITROGEN, BLOOD 90 mg/dL (7-18)
--- NOTE | 2020-08-16 05:28 | NUR ---
ICU/AVICULTURIST RT DECREASED THE FIO2 LOLY TO 60 FROM 80. WILL CLOSELY MONITOR THIS PT AND HER SATURATION.
--- NOTE | 2020-08-16 05:50 | NUR ---
ICU/PROJECT MANAGER SENIOR CHARGE NURSE INCREASED SEDATION, DUE TO PT BEING RESTLESS AND GRABBING AT LINES. WILL CONTINUE TO MONITOR THIS PT. SEDATION IS NOW AT 15MCG FROM 10MCG.
[2020-08-16 06:02] LABS: BAND % (MANUAL) 32 % (0.0-5.0); LYMPHOCYTES % (MANUAL) 1 % (16-48); MONOCYTES % (MANUAL) 2 % (0-11.0); NEUTROPHILS % (MANUAL) 64 (42-76); PROMYELOCYTES % 1 % (0-0)
[2020-08-16] MEDS: IV D5/0.45 NACL 1,000 ML IV PRN (06:12)
[2020-08-16] MEDS: PHENYLEPHRINE 100 MG in IV NS 0.9% 240 ML IV PRN ×2 (07:01→17:42)
[2020-08-16] MEDS: IV NS 0.9% 1,000 ML IV PRN ×2 (07:30→11:38)
--- NOTE | 2020-08-16 07:45 | NUR ---
ICU/RN PT IS INTUBATED ON THE VENT AC MODE .FIO2-60%,SAT O2-100%.ON NEOSYNEPHRINE DRIP.ON DIPRIVAN DRIP ,CALM AND COOPERATIVE .OPEN EYES.BILATERAL SOFT WRIST RESTRAINS ON.NG TUBE CONNECTED TO LOW INTERMEDIATE SUCTION,NO OUTPUT.F/C IN PLACE NO URINE OUTPUT AT THIS TIME .PT IS ON HD .RIGHT FEMORAL HD CATH WITH PICC TAIL.PT POST OP 0N 08/15/20 POST EXP LAP.NEW COLOSTOMY. LABS REVIEW.
[2020-08-16 08:22] LABS: COMPLEMENT C3, SERUM 124 mg/dL (82-167); COMPLEMENT C4, SERUM 22 mg/dL (12-38)
[2020-08-16] MEDS: FAMOTIDINE/PF INJ 20 MG/2 ML VIAL IV SCH (08:35)
[2020-08-16] MEDS: HYDROCORTISONE SOD SUCCINATE 100 MG/2 ML VIAL IV SCH ×3 (08:37→20:46)
[2020-08-16 08:39] LABS: ABG BASE EXCESS -11.1 mmol/L; ABG OXYGEN SATURATION 98.2 % (92.0-98.5); ABG PCO2 17.3 mmHg (35.0-45.0); ABG PH 7.416 (7.350-7.450); ABG PO2 140.9 mmHg (75.0-100.0); AaDO2 124.4 mmHg; COHb 0.6 % (0.5-1.5); O2Hb 97.6 % (94.0-97.0); SITE, ABG Left Brachial
[2020-08-16] MEDS: HEPARIN SODIUM, PORCINE 5000 UNITS/1 ML VIAL SQ SCH ×2 (08:52→20:46)
[2020-08-16] MEDS ORDERED: ENOXAPARIN SODIUM 40 MG/0.4 ML DISP.SYRIN SQ SCH (09:00)
--- NOTE | 2020-08-16 09:00 | NUR ---
ICU/RN DUE MEDS ARE GIVEN ORDERED.REPOSITION FOR COMFORT.
--- NOTE | 2020-08-16 10:00 | NUR ---
ICU/RN SEDATION VACATION PROVIDED.PT IS AWAKE,ALERT.MILD AGITATION.NOT STABLE TO TO BE WEAN FROM VENT .NEED HD.FIO2-30%.SAT O2 -100%.ON MAX DOSE OF NEOSYNEPHRINE.OK TO START VASOPRESSIN ISELA IF NEED SECOND PRESSORS BY DR COSTA.
[2020-08-16] MEDS ORDERED: TPN/PPN PER PHARMACY XX PRN (10:30)
[2020-08-16] MEDS ORDERED: TPN BAG #1 IV PRN ×2 (13:00)
[2020-08-16] MEDS ORDERED: DEXTROSE 50%-WATER 50 ML DISP.SYRIN IV PRN (13:00)
--- NOTE | 2020-08-16 13:00 | NUR ---
ICU/RN NEW LEFT ARM PICC LINE INSERTED ORDERED,OK TO USE. HD NURSE AT BED SIDE.HD STARTED.
[2020-08-16] MEDS: SOD FERRIC GLUC 125 MG in IV NS 0.9% 100 ML IV SCH (13:56)
[2020-08-16] MEDS ORDERED: Sodium Bicarbonate 150 MEQ in IV D5W 1,000 ML IV SCH (14:30)
[2020-08-16 16:10] LABS: *ANA ANTI-CENTROMERE B AB <0.2 AI (0.0-0.9); *ANA ANTI-DNA(DS) AB, QN 7 IU/mL (0-9); *ANA ANTI-JO-1 <0.2 AI (0.0-0.9); *ANA ANTICHROMATIN ANTIBODY <0.2 AI (0.0-0.9); *ANA RNP ANTIBODIES 0.2 AI (0.0-0.9); *ANA SJOGREN'S ANTI-SS-A <0.2 AI (0.0-0.9); *ANA SJOGREN'S ANTI-SS-B <0.2 AI (0.0-0.9); *ANAANTI-SCLERODERMA-70 AB <0.2 AI (0.0-0.9); *ANASMITH AB <0.2 AI (0.0-0.9)
--- NOTE | 2020-08-16 17:05 | NUR ---
ICU/RN PM CARE PROVIDED.DUE MEDS ARE ARE GIVEN ORDERED.TPN STARTED ORDERED.PT IS ON BICARB DRIP.DIPRIVAN,DRIP AND NEOSYNEPHRINE,SUCTION PROVIDED.REPOSITION FOR COMFORT.CONTINUE MONITORING.
[2020-08-16] MEDS: BLOOD SUGAR DIAGNOSTIC 1 EACH STRIP IN SCH (17:32)
--- NOTE | 2020-08-16 19:25 | NUR ---
ICU/PHARMACY MANAGER RECEIVED REPORT FROM DAY NURSE. SEE FLOWSHEET FOR ASSESSMENT,THERE NO SKIN ISSUES THAT NEED TO BE ADDRESSED. PT IS PROPERLY SEDATED. PT HAS RIGHT NARE N/G TUBE THAT IS TO LOW INTERMITTING SUCTION. PT ALSO CURRENTLY HAS A COLOSTOMY THAT IS DRAINING BLOODY STOOL.THERE IS AN ABDOMINAL SURGICAL DRESSING WHICH IS CLEAN DRY AND INTACT. DE LEON CATH DRAINING SMALL AMOUNT OF DARK YELLOW URINE. PT IS ORALLY INTUBATED, TOLERATING CURRENT VENT SETTINGS WITH SATURATION AT 100%. PT WAS TURN AND REPOSITION FOR COMFORT AND CARE. WILL CONTINUE TO MONITOR THIS PT, NO ACUTE DISTRESS SEEN AT THIS TIME.
--- NOTE | 2020-08-16 21:18 | NUR ---
RT NOTE PT RECEIVED INTUBATED WITH 7.0 ET TUBE @ 21 CM. AMBU BAG @ HOB. VENT PLUGGED TO RED OUTLET. ALARMS ON AND AUDIBLE. SX DONE, ET TUBE SECURED AND PATENT. NO DISTRESS NOTED AT THIS TIME. WILL CONTINUE TO MONITOR T/O SHIFT. Addendum: 08/16/20 at 2118 by JIGNA PATEL RT Amended: Links added.
--- NOTE | 2020-08-16 22:10 | NUR ---
ICU/SHRIMP TRAWLER PT WAS GIVEN ORAL CARE. THEN GIVEN PROVIDED PM CARE, WHICH SHE TOLERATED WELL. PT REMAINS ON CURRENT VENT SETTING WITH SATURATION AT 100%. PT WAS TURNED AND REPOSITIONED FOR COMFORT AND CARE. NO ACUTE DISTRESS SEEN. WILL CONTINUE TO MONITOR THIS PT. N/G TUBE IS REMAINS TO LOW INT. SUCTION.
[2020-08-17] VITALS (57 sets, daily range): BP systolic 95–153; BP diastolic 53–102
--- NOTE | 2020-08-17 | NUR ---
ICU/IMPREGNATOR ELECTROLYTIC CAPACITORS PT'S MIDNIGHT BLOOD SUGAR IS 114, THERE IS NO COVERAGE FOR THIS PER SLIDING SCALE ORDERED BY MD. WILL CONTINUE TO CLOSELY THIS PT'S SUGAR ORDERED BY MD AND HOSPITAL PROTOCOL. PT WAS TURNED AND REPOSTIONED FOR COMFORT AND CARE.
[2020-08-17] MEDS: BLOOD SUGAR DIAGNOSTIC 1 EACH STRIP IN SCH ×4 (00:50→17:37)
[2020-08-17] MEDS: METRONIDAZOLE 500MG/ NS 100ML 500 MG in PREMIX 1 EA IV SCH ×3 (02:09→17:07)
[2020-08-17] MEDS: PROPOFOL 100 ML IV PRN (02:10)
--- NOTE | 2020-08-17 02:30 | NUR ---
ICU/BUSINESS STRATEGIST PT WAS GIVEN ORAL CARE. THEN GIVEN PROVIDED AM CARE, WHICH SHE TOLERATED WELL. PT REMAINS ON CURRENT VENT SETTING WITH SATURATION AT 100%. PT WAS TURNED AND REPOSITIONED FOR COMFORT AND CARE. NO ACUTE DISTRESS SEEN. WILL CONTINUE TO MONITOR THIS PT. N/G TUBE IS REMAINS TO LOW INT. SUCTION.
--- NOTE | 2020-08-17 04:17 | NUR ---
ICU/CREDIT MANAGER AM LABS WERE DONE ALONG WITH CXR, AWAIT FOR ANY CRITICAL LAB VALUES
[2020-08-17] MEDS: HYDROCORTISONE SOD SUCCINATE 100 MG/2 ML VIAL IV SCH ×3 (05:13→20:41)
[2020-08-17] MEDS: ANCEF 1 GM/50 ML D5W IV SCH ×6 (05:13→20:41)
[2020-08-17] MEDS: METOCLOPRAMIDE HCL 10 MG/2 ML VIAL IV SCH ×3 (05:13→17:07)
[2020-08-17 05:27] LABS: BASOPHILS % (AUTO) 0.1 % (0.0-2.0); HEMATOCRIT 25 % (33-45); HEMOGLOBIN 8.1 g/dL (11.5-14.8); LYMPHOCYTES # (AUTO) 0.2 /CMM (0.8-4.8); LYMPHOCYTES % (AUTO) 0.8 % (20.0-44.0); MEAN CORPUSCULAR HGB CONC 33 g/dl (31.0-36.0); MEAN CORPUSCULAR VOLUME 94 fL (82-100); MONOCYTES # (AUTO) 0.2 /CMM (0.1-1.30); MONOCYTES % (AUTO) 0.8 % (2.0-12.0); NEUTROPHILS # (AUTO) 23.5 /CMM (1.8-8.9); NEUTROPHILS % (AUTO) 98.3 % (43.0-81.0); PLATELET COUNT (AUTO) 57 /CMM (150-450); RED BLOOD CELL COUNT(AUTO) 2.63 MIL/uL (4.0-5.2); WHITE BLOOD COUNT (AUTO) 23.9 K/uL (4.3-11.0)
[2020-08-17 05:44] LABS: ALANINE AMINOTRANSFERASE 8 U/L (12-78); ALBUMIN 1.5 g/dL (3.4-5.0); ALKALINE PHOSPHATASE 103 U/L (46-116); ASPARTATE AMINOTRANSFERASE 74 U/L (15-37); BILIRUBIN,TOTAL 0.5 mg/dL (0.2-1.0); CALCIUM, SERUM 7.4 mg/dL (8.5-10.1); CARBON DIOXIDE 24 mmol/L (21-32); CHLORIDE 102 mmol/L (98-107); CREATININE 3.6 mg/dL (0.6-1.3); GLUCOSE 128 mg/dL (74-106); MAGNESIUM 1.5 mg/dL (1.8-2.4); PHOSPHORUS 3.5 mg/dL (2.5-4.9); POTASSIUM 3.3 mmol/L (3.5-5.1); SODIUM SERUM 139 mmol/L (136-145); TOTAL PROTEIN, SERUM 4.6 g/dL (6.4-8.2); UREA NITROGEN, BLOOD 58 mg/dL (7-18)
[2020-08-17 06:05] LABS: BAND % (MANUAL) 7 % (0.0-5.0); LYMPHOCYTES % (MANUAL) 2 % (16-48); MONOCYTES % (MANUAL) 5 % (0-11.0); NEUTROPHILS % (MANUAL) 86 (42-76)
--- NOTE | 2020-08-17 06:18 | NUR ---
ICU/CARE PROVIDER PT IS S/P EXPLOR. WITH COLOSTOMY, PT HAS A N/G TUBE TO LOW INTERM. SUCTION. YESTERDAY PT DID NOT HAVE ANY OUTPUT FROM THE N/G TUBE. THEN THE NEXT DAY THE SAME THING. NOTICED THE ABDOMEN WAS SLIGHTLY DISTENDED. FLUSHED AIR INTO THE N/G. CAME BACK TO REPOSTIONED THE PT, THERE WAS 850ML OF YELLOW BILE. NOTIFIED CHARGE NURSE ABOUT THIS. WILL CONTINUE TO CLOSELY MONITOR THIS PT AND HER OUTPUT.
[2020-08-17] MEDS: PHENYLEPHRINE 100 MG in IV NS 0.9% 240 ML IV PRN (06:54)
[2020-08-17] MEDS ORDERED: HEPARIN SODIUM, PORCINE 5000 UNITS/1 ML VIAL SQ SCH (07:00)
--- NOTE | 2020-08-17 07:20 | NUR ---
RN INITIAL NOTES RECEIVED PT INTUBATED, ON VENT. SEDATED, ON DIPRIVAN AT 30MCG/KG/MIN. HOB ELEVATED. NO RESPIRATORY DISTRESS NOTED. NO SIGNS OF PAIN NOTED. ADE PCC IN PLACE. ON NILE AT 2.5MCG/KG/MIN. WILL TITRATE ACCORDINGLY. RIGHT FEMORAL HD CATH WITH PIGTAIL IN PLACE. DE LEON IN PLACE. BLE ELEVATED. WILL CLOSELY MONITOR
[2020-08-17] MEDS: FAMOTIDINE/PF INJ 20 MG/2 ML VIAL IV SCH (08:49)
[2020-08-17] MEDS: IV NS 0.9% 1,000 ML IV PRN ×2 (08:53→21:24)
[2020-08-17] MEDS: POTASSIUM CL. PREMIX PERIPHER. 50 ML IV SCH ×6 (08:53→16:06)
--- NOTE | 2020-08-17 09:30 | NUR ---
RN NOTES 0900 SEEN AND EXAMINED BY DR GUIDO. AWARE OF LAB VALUES AND IMAGING STUDIES. NGT CONNECTED TO SUCTION. ON TPN. DIPRIVAN ON HOLD FOR SEDATION VACATION. NILE INFUSING, WILL MONITOR BP. WILL CLSOELY MONITOR 0915 SEEN AND EXAMINED BY DR COSTA. ORDERED WEANING TRAILS. PT OFF SEDATION. MOVES TO PAIN. DOES NOT OPEN EYES NOR FOLLOWS COMMANDS AT THIS TIME. ABG AT 1200. WILL CLOSELY MONITOR
--- NOTE | 2020-08-17 12:00 | NUR ---
RN NOTES ABG RESULT RELAYED TO DR COSTA. PT REMIANS SEDATED. DOES NOT OPEN EYES NOR FOLLOWS COMMANDS. MOVE TO PAIN. PLACED BACK ON AC MODE. WILL MONITOR
[2020-08-17 12:14] LABS: ABG BASE EXCESS -1.8 mmol/L; ABG OXYGEN SATURATION 96.8 % (92.0-98.5); ABG PCO2 23.8 mmHg (35.0-45.0); ABG PO2 95.2 mmHg (75.0-100.0); AaDO2 90.7 mmHg; COHb 1.2 % (0.5-1.5); MetHb 0.3 % (0.0-1.5); O2Hb 95.3 % (94.0-97.0); SITE, ABG Right Radial; VENT MODE, BG SIMV 4 450 0 30% PS 8
[2020-08-17] MEDS: SOD FERRIC GLUC 125 MG in IV NS 0.9% 100 ML IV SCH (14:23)
[2020-08-17] MEDS ORDERED: TPN BAG #2 IV PRN ×8 (14:30→16:00)
[2020-08-17] MEDS: Magnesium 1GM/D5W 100ML PREMIX 100 ML IV SCH ×2 (15:35→16:36)
[2020-08-17] MEDS: MORPHINE SULFATE INJ 2 MG/ML DISP.SYRIN IV PRN (17:08)
--- NOTE | 2020-08-17 17:35 | NUR ---
RT RECD PT ON AC MODE PLACED ON SIMV 4 450 0 30% ABG AFTER 1.5HRS, PLACED BACK ON AC MODE DUE TO PT NOT WAKING UP NOT FOLLOWING COMMANDS
[2020-08-17] MEDS: INSULIN REGULAR, HUMAN 100 UNIT/ML 3 ML VIAL SQ PRN (17:38)
--- NOTE | 2020-08-17 18:53 | NUR ---
RN CLOSING NOTES PT REMAINS INTUBATED, ON VENT. NO RESPIRATORY DISTRESS NOTED. NO SIGNS OF PAIN NOTED. TPN AND IVF INFUSING. KEPT CLEAN AND DRY. REPOSITIONED Q2. WILL ENDORSE FOR CONTINUITY OF CARE.
--- NOTE | 2020-08-17 19:29 | NUR ---
PT REC'D ORALLY INTUBATED VIA ETT 7.0 SECURED AT 21 CM AT THE LIP LINE [facility] V[facility] WITH NOTED SETTINGS. SX DONE, ALARMS ARE SET AND AUDIBLE. VENT PLUGGED INTO RED OUTLET. AMBU BAG@ BEDSIDE. WILL CONTINUE TO MONITOR T/O THE SHIFT.
[2020-08-18] VITALS (35 sets, daily range): BP systolic 81–158; BP diastolic 44–92
[2020-08-18] MEDS: BLOOD SUGAR DIAGNOSTIC 1 EACH STRIP IN SCH ×4 (00:06→17:28)
[2020-08-18] MEDS: METOCLOPRAMIDE HCL 10 MG/2 ML VIAL IV SCH ×4 (00:07→17:10)
[2020-08-18] MEDS: METRONIDAZOLE 500MG/ NS 100ML 500 MG in PREMIX 1 EA IV SCH ×3 (01:25→17:10)
[2020-08-18] MEDS: ANCEF 1 GM/50 ML D5W IV SCH ×6 (04:32→20:19)
[2020-08-18] MEDS: HYDROCORTISONE SOD SUCCINATE 100 MG/2 ML VIAL IV SCH ×3 (04:32→20:19)
--- NOTE | 2020-08-18 04:56 | NUR ---
ICE CREAM SERVER PT IS LETHARGIC, RESPONSE TO TOUCH, SLIGHTLY MOVING ARMS. VENT.-AC MODE TOLERATES WELL. SMALL AMT. OF THIN WHITISH SECRETION. VSS, AFEBRILE, SCOPE-SR-ST. NGT TO LIS DRAINS MODERATE AMT. IF LIGHT BROWNISH SECRETION. IV SITE INTACT. ABDOMEN SOFT, NONDISTENDED,BOWEL SOUNDS DIMINISHED. COLOSTOMY DRAINS SMALL AMT. OF DARK BLOOD. F/C DRAINS INSUFFICIENT AMT. OF CLEAR YELLOW URINE. COMPLETE BATH GIVEN , ALL LINEN CHANGED. LAB. WORK DONE. MEDICATED ORDERED.
[2020-08-18 05:01] LABS: BASOPHILS % (AUTO) 0.1 % (0.0-2.0); LYMPHOCYTES # (AUTO) 0.2 /CMM (0.8-4.8); LYMPHOCYTES % (AUTO) 0.9 % (20.0-44.0); MEAN CORPUSCULAR HGB CONC 33 g/dl (31.0-36.0); MEAN CORPUSCULAR VOLUME 92 fL (82-100); MONOCYTES # (AUTO) 0.2 /CMM (0.1-1.30); MONOCYTES % (AUTO) 0.9 % (2.0-12.0); NEUTROPHILS # (AUTO) 19.3 /CMM (1.8-8.9); NEUTROPHILS % (AUTO) 98.1 % (43.0-81.0); RED BLOOD CELL COUNT(AUTO) 2.19 MIL/uL (4.0-5.2); WHITE BLOOD COUNT (AUTO) 19.6 K/uL (4.3-11.0)
[2020-08-18 05:03] LABS: HEMATOCRIT 20 % (33-45); HEMOGLOBIN 6.7 g/dL (11.5-14.8); PLATELET COUNT (AUTO) 21 /CMM (150-450)
[2020-08-18 05:31] LABS: BAND % (MANUAL) 2 % (0.0-5.0); EOSINOPHILS % (MANUAL) 2 % (0-4); LYMPHOCYTES % (MANUAL) 2 % (16-48); MONOCYTES % (MANUAL) 2 % (0-11.0); NEUTROPHILS % (MANUAL) 92 (42-76)
[2020-08-18] MEDS: INSULIN REGULAR, HUMAN 100 UNIT/ML 3 ML VIAL SQ PRN ×2 (05:40→17:29)
[2020-08-18 05:56] LABS: CALCIUM, SERUM 7.3 mg/dL (8.5-10.1); CARBON DIOXIDE 23 mmol/L (21-32); CHLORIDE 103 mmol/L (98-107); CREATININE 3.5 mg/dL (0.6-1.3); GLUCOSE 131 mg/dL (74-106); PHOSPHORUS 2.7 mg/dL (2.5-4.9); POTASSIUM 3.4 mmol/L (3.5-5.1); SODIUM SERUM 136 mmol/L (136-145); UREA NITROGEN, BLOOD 66 mg/dL (7-18)
--- NOTE | 2020-08-18 07:20 | NUR ---
RN INITIAL NOTES RECEIVED PT INTUBATED, ON VENT. HOB ELEVATED. NO RESPIRATORY DISTRESS NOTED. NO SIGNS OF PAIN NOTED. ADE PICC AND RIGHT FEMORAL HD CATH WITH PIGTAIL IN PLACE. TPN AND IVF INFUSING. DE LEON IN PLACE. BLE ELEVATED. WILL CLOSELY MONITOR
--- NOTE | 2020-08-18 08:09 | NUR ---
WOUND CARE CONSULT: PT SEEN FOR SKIN ASSESSMENT AND NOTED TO BE VERY THIN AND BONY, PRESENT ON ADMISSION. ABDOMINAL SURGICAL DRESSING AND OSTOMY FOLLOWED BY SURGEON. ABDOMINAL DRESSING IS DRY AND INTACT. RECOMMENDATIONS MADE FOR SKIN PROTECTION. DISCUSSED WITH NURSING STAFF. PT IS ON YOLANDA ISOFLEX LOW AIRLOSS BED. MD IN AGREEMENT WITH PLAN OF CARE.
[2020-08-18] MEDS: FAMOTIDINE/PF INJ 20 MG/2 ML VIAL IV SCH (08:32)
--- NOTE | 2020-08-18 10:26 | NUR ---
RN NOTES [address] LUNSFORD. AWARE OF LAB VALUES AND IMAGING RESULT. PT REMAINS INTUBATED, ON VENT. PT MOVES TO PAIN BUT DOES NOT OPEN EYES NOR FOLLOW COMMANDS. NO WEANING TRIALS TODAY PER MD. WILL CLOSELY MONITOR 1025 HEMODIALYSIS DONE, 1L OUT. TOLERATED WELL. VS STABLE. 1 UNIT OF PRBC GIVEN WITH HD. NO TRANSFUSION REACTION NOTED. WILL CLOSELY MONITOR
[2020-08-18] MEDS: IV NS 0.9% 1,000 ML IV PRN ×2 (11:24→20:19)
[2020-08-18 12:45] LABS: ABG BASE EXCESS 0.3 mmol/L; ABG OXYGEN SATURATION 96.9 % (92.0-98.5); ABG PCO2 23.8 mmHg (35.0-45.0); ABG PO2 97.4 mmHg (75.0-100.0); AaDO2 160.4 mmHg; COHb 2.1 % (0.5-1.5); O2Hb 88.1 % (94.0-97.0); SITE, ABG Left Radial; VENT MODE, BG SIMV 4 PS 12 40% +5
[2020-08-18] MEDS ORDERED: POTASSIUM CL. PREMIX PERIPHER. 50 ML IV SCH (13:00)
[2020-08-18] MEDS ORDERED: TPN BAG #3 IV PRN ×2 (13:00)
--- NOTE | 2020-08-18 13:30 | NUR ---
MY NOTES 1200 PT NOTED TO BE AWAKE, ORIENTED X 1. FOLLOWS SIMPLE COMMANDS. DR LUNSFORD AT BEDSIDE. PLACED PT ON SIMV MODE. WILL MONITOR 1300 ABG DONE. RESULT RELAYED TO DR LUNSFORD. PT MOVES TO PAIN BUT DOES NOT OPEN EYES NOR FOLLOWS COMMANDS. PER DR LUNSFORD, KEEP ON SIMV MODE UNTIL DISTRESS 1330 DR LUNSFORD NOTIFIED ON APNEA EPISODES OF PT WHILE ON SIMV. PT BACKED ON SIMV MODE. HOB ELEVATED. WILL CLOSELY MONITOR Addendum: 08/18/20 at 1830 by PAULINO MCQUEEN RN CORRECTION FOR 1330 DOCUMENTATION PT PLACED BACK ON AC MODE AFTER APNEA EPISODES. DR LUNSFORD AWARE.
[2020-08-18] MEDS: SOD FERRIC GLUC 125 MG in IV NS 0.9% 100 ML IV SCH (15:11)
[2020-08-18] MEDS: MORPHINE SULFATE INJ 2 MG/ML DISP.SYRIN IV PRN ×2 (17:33→22:00)
--- NOTE | 2020-08-18 19:26 | NUR ---
JUNIOR NETWORK ENGINEER. INITIAL ASSESSMENT, RECEIVED THE PT REST ON THE BED. AWAKE, LETHARGICORALLY INTUBATED. ETT #7,LIP 21,AC 16,TV 450,FIO2 30%,PEEP 5, SAT 98%. POINT OF CARE SPECIALIST SHOWING NSR. IV LT UPPER ARM PICC LINERT FEMORAL HD CATH IVF NS 100ML/H TPN 60ML/HRT NARE NGT LOW INTERMITTENT SUCTION. FC PATENT. URINE DRAINING. HOB ELEVATED. AFEBRILE. WILL CONTINUE TO MONITOR VITALS.
--- NOTE | 2020-08-18 22:36 | NUR ---
agriculture professor. pt agitated, heart rate was 116. morphine 2mg iv given per md
[2020-08-19] VITALS (42 sets, daily range): BP systolic 112–172; BP diastolic 54–111
[2020-08-19] MEDS: METOCLOPRAMIDE HCL 10 MG/2 ML VIAL IV SCH ×5 (00:21→23:23)
[2020-08-19] MEDS: BLOOD SUGAR DIAGNOSTIC 1 EACH STRIP IN SCH ×5 (00:32→23:23)
[2020-08-19] MEDS: METRONIDAZOLE 500MG/ NS 100ML 500 MG in PREMIX 1 EA IV SCH ×3 (02:05→17:53)
--- NOTE | 2020-08-19 02:42 | NUR ---
agricultural aircraft pilot. remaining same vent setting tolerated well.
[2020-08-19] MEDS: MORPHINE SULFATE INJ 2 MG/ML DISP.SYRIN IV PRN ×2 (03:53→08:06)
--- NOTE | 2020-08-19 04:35 | NUR ---
horticulturalist. am care. oral care, bed bath given. linen changed. remaining same vent setting tolerated well.sat 98%. no acute distress noted. cardiac tech showing s tach. iv rtlt upper arm picc line. ivf ns 100ml/h. tpn 70ml/h, hob elevated. ngt low intermittent suction intact. fc patent. roxy soft wrist restraint checked and released., no injury or redness noted. will continue to monito vitals.
[2020-08-19] MEDS: ANCEF 1 GM/50 ML D5W IV SCH ×6 (05:29→21:36)
[2020-08-19] MEDS: HYDROCORTISONE SOD SUCCINATE 100 MG/2 ML VIAL IV SCH ×3 (05:29→21:38)
[2020-08-19] MEDS ORDERED: TPN BAG #4 IV PRN ×2 (05:30)
[2020-08-19 05:38] LABS: CALCIUM, SERUM 7.3 mg/dL (8.5-10.1); CARBON DIOXIDE 23 mmol/L (21-32); CHLORIDE 104 mmol/L (98-107); CREATININE 2.3 mg/dL (0.6-1.3); GLUCOSE 148 mg/dL (74-106); MAGNESIUM 1.6 mg/dL (1.8-2.4); PHOSPHORUS 2.7 mg/dL (2.5-4.9); POTASSIUM 2.9 mmol/L (3.5-5.1); SODIUM SERUM 136 mmol/L (136-145); UREA NITROGEN, BLOOD 57 mg/dL (7-18)
[2020-08-19] MEDS: INSULIN REGULAR, HUMAN 100 UNIT/ML 3 ML VIAL SQ PRN ×2 (05:38→18:07)
--- NOTE | 2020-08-19 07:30 | NUR ---
RN/ICU-RECEIVED PT. W/ EYES OPEN, NON-INTERACTIVE, GRIMACING,MOVING UPPER EXTREMITIES, W/ ANNA. SOFT WRIST RESTRAINTS ON PER PROTOCOL. ON THE VENT PER ETT, ON SC MODE. FIO2-30%, PEEP+5. SATS.-97%. EKG SR W/ HR-77/MIN. BP-123/55. W/ NGT IN PLACE, DRAINING TO A MODERATE AMOUNT OF BROWNISH COFFEE LIKE GI CONTENTS. U/O DARK YELLOW URINE OUTPUT PER FC. AFEBRILE. NOT IN ANY DISTRESS.PT. IS A FULL CODE
[2020-08-19] MEDS: FAMOTIDINE/PF INJ 20 MG/2 ML VIAL IV SCH (08:27)
--- NOTE | 2020-08-19 08:27 | NUR ---
RN/ICU-DR. LUNSFORD HERE TO SEE PT.
--- NOTE | 2020-08-19 09:24 | NUR ---
RN/ICU- DR. WELCH HERE TO SEE PT.
[2020-08-19] MEDS ORDERED: Magnesium 1GM/D5W 100ML PREMIX 100 ML IV SCH (10:00)
[2020-08-19] MEDS ORDERED: IV NS 0.9% 250 ML IV PRN (10:00)
[2020-08-19] MEDS: POTASSIUM CL. PREMIX PERIPHER. 50 ML IV SCH ×5 (10:31→14:07)
--- NOTE | 2020-08-19 11:02 | NUR ---
RN/ICU-DR. HECK HERE TO SEE PT.
--- NOTE | 2020-08-19 11:15 | NUR ---
RN/ICU-PT. CONDITION REMAINS THE SAME. WILL ATTEMPT WEANING PT. AT [address] LUNSFORD. REPORT GIVEN TO MY MUKHERJEE.
[2020-08-19 11:29] LABS: BASOPHILS % (AUTO) 0.2 % (0.0-2.0); HEMATOCRIT 23 % (33-45); HEMOGLOBIN 7.7 g/dL (11.5-14.8); LYMPHOCYTES # (AUTO) 0.2 /CMM (0.8-4.8); LYMPHOCYTES % (AUTO) 1.3 % (20.0-44.0); MEAN CORPUSCULAR HGB CONC 33 g/dl (31.0-36.0); MEAN CORPUSCULAR VOLUME 93 fL (82-100); MONOCYTES % (AUTO) 0.3 % (2.0-12.0); NEUTROPHILS # (AUTO) 12.5 /CMM (1.8-8.9); NEUTROPHILS % (AUTO) 98.2 % (43.0-81.0); RED BLOOD CELL COUNT(AUTO) 2.49 MIL/uL (4.0-5.2); WHITE BLOOD COUNT (AUTO) 12.7 K/uL (4.3-11.0)
[2020-08-19 12:21] LABS: PLATELET COUNT (AUTO) 9 /CMM (150-450)
--- NOTE | 2020-08-19 14:00 | NUR ---
ICU/RN: TOOK OVER CARE. PT INTUBATED ON VENT SETTINGS, NO ACUTE DISTRESS NOTED. WEANING SCHEDULED FOR TOMORROW. PT LETHARGIC AND DROWSY. VSS, NO ACUTE DISTRESS NOTED. ALL NEEDS WILL BE ATTENDED TO, SAFETY MEASURES TAKEN. BILATERAL SOFT WRIST RESTRAINTS IN PLACE, ASSESSED PER PROTOCOL.
[2020-08-19] MEDS ORDERED: TPN BAG #5 IV PRN ×2 (17:00)
--- NOTE | 2020-08-19 18:55 | NUR ---
ICU/RN ENDING NOTES,AM REPORT WILL BE ENDORSED TO NIGHT NURSE FOR LUCINDA. PT INTUBATED ON VENT SETTINGS ORDERED, NO ACUTE DISTRESS NOTED. SINUS TACH ON TELE. CENTRAL LINE AND PIV PATENT AND INTACT, NO S/S OF INFECTION OR INFILTRATION NOTED, TPN INFUSING ORDERED. NG TO SUCTION, MINIMAL OUTPUT NOTED, BILATERAL SOFT WRIST RESTRAINTS INPLACE, ASSESSED PER PROTOCOL. ALL NEEDS ATTENDED TO, SAFETY MEASURES TAKEN, BED IN LOW POSITION, SIDE RAILS UP, CALL LIGHT WITHIN REACH, WILL CONTINUE CARE.
--- NOTE | 2020-08-19 19:00 | NUR ---
Received patient in no acute distress in bed. patient is lethargic and opens eyes to touch. Patient is on mechanical vent via ett 7.0 with mechanical vent setting at ac 16, tv 450, fio2 30% and peep 5. telemetry reading shows sinus tachy on the monitor. abdominal surgical site dressing is clean dry and intact. colostomy on the right abdomen is clean dry intact and patent with blood fluid in colostomy. Obregon catheter is clean dry intact and patent with mary ann urine draining. Patient has right nare ng tube that is clean dry intact and on low intermittent suction with mary ann secretions in collection chamber. ADE TLC picc line is clean dry intact and patent with TPN at 70 ml/hr and NS at TKO. bed in low lock position with rials up x 2. call light within reach and all safety measures ensured and carried out. will continue to monitor.
[2020-08-20] VITALS (28 sets, daily range): BP systolic 104–174; BP diastolic 54–110
--- NOTE | 2020-08-20 | NUR ---
Patient is more alert and able to nod yes and no to questions. patient able to follow simple commands. will continue to monitor.
[2020-08-20] MEDS: INSULIN REGULAR, HUMAN 100 UNIT/ML 3 ML VIAL SQ PRN ×4 (00:12→23:56)
[2020-08-20 00:54] LABS: BAND % (MANUAL) 4 % (0.0-5.0); LYMPHOCYTES % (MANUAL) 3 % (16-48); NEUTROPHILS % (MANUAL) 93 (42-76)
[2020-08-20] MEDS: METRONIDAZOLE 500MG/ NS 100ML 500 MG in PREMIX 1 EA IV SCH ×3 (03:10→18:03)
[2020-08-20 04:35] LABS: BASOPHILS % (AUTO) 0.1 % (0.0-2.0); HEMATOCRIT 27 % (33-45); HEMOGLOBIN 9.1 g/dL (11.5-14.8); LYMPHOCYTES # (AUTO) 0.2 /CMM (0.8-4.8); LYMPHOCYTES % (AUTO) 2.2 % (20.0-44.0); MEAN CORPUSCULAR HGB CONC 34 g/dl (31.0-36.0); MEAN CORPUSCULAR VOLUME 93 fL (82-100); MONOCYTES # (AUTO) 0.2 /CMM (0.1-1.30); NEUTROPHILS # (AUTO) 9.2 /CMM (1.8-8.9); NEUTROPHILS % (AUTO) 95.7 % (43.0-81.0); RED BLOOD CELL COUNT(AUTO) 2.85 MIL/uL (4.0-5.2); WHITE BLOOD COUNT (AUTO) 9.6 K/uL (4.3-11.0)
[2020-08-20 04:43] LABS: PLATELET COUNT (AUTO) 7 /CMM (150-450)
[2020-08-20 04:47] LABS: CARBON DIOXIDE 19 mmol/L (21-32); CHLORIDE 102 mmol/L (98-107); CREATININE 2.3 mg/dL (0.6-1.3); GLUCOSE 114 mg/dL (74-106); MAGNESIUM 1.6 mg/dL (1.8-2.4); PHOSPHORUS 2.9 mg/dL (2.5-4.9); POTASSIUM 3.6 mmol/L (3.5-5.1); SODIUM SERUM 133 mmol/L (136-145)
[2020-08-20 04:51] LABS: UREA NITROGEN, BLOOD 80 mg/dL (7-18)
--- NOTE | 2020-08-20 05:00 | NUR ---
Patient c/o pain in the abdomen/ surgical site with elevated heart rate and blood pressure. tried to reposition with no relief from pain. morphine given per orders. will continue to monitor.
[2020-08-20] MEDS: METOCLOPRAMIDE HCL 10 MG/2 ML VIAL IV SCH ×4 (05:04→23:23)
[2020-08-20] MEDS: BLOOD SUGAR DIAGNOSTIC 1 EACH STRIP IN SCH ×4 (05:04→23:23)
[2020-08-20] MEDS: HYDROCORTISONE SOD SUCCINATE 100 MG/2 ML VIAL IV SCH ×3 (05:04→20:08)
[2020-08-20] MEDS: ANCEF 1 GM/50 ML D5W IV SCH ×6 (05:04→20:07)
[2020-08-20] MEDS: MORPHINE SULFATE INJ 2 MG/ML DISP.SYRIN IV PRN (05:13)
[2020-08-20 05:17] LABS: MONOCYTES % (MANUAL) 1 % (0-11.0); NEUTROPHILS % (MANUAL) 99 (42-76)
[2020-08-20] MEDS ORDERED: TPN BAG #6 IV PRN ×2 (07:00)
--- NOTE | 2020-08-20 07:20 | NUR ---
patient remains in no acute distress in bed. patient did not have any significant change in condition during shift. Patient tolerated Vent setting well. all needs met, all orders carried out. will endorse care to am RN for continuity of care.
--- NOTE | 2020-08-20 08:00 | NUR ---
ICU/RN: INITIAL NOTES,AM RECEIVED REPORT FROM NIGHT NURSE. PT OPENS EYES, FOLLOWS SOME SIMPLE COMMANDS. PT INTUBATED ETT 7.0/21 CM AT THE LIP, ON VENT SETTINGS ORDERED BY MD, NO ACUTE DISTRESS NOTED. WEANING SCHEDULED FOR TODAY. SINUS ON TELE. DE LEON IN PLACE, DRAINING YELLOW URINE. COLOSTOMY BAG IN PLACE, NO OUTPUT AT THE TIME. NG TUBE TO LIS, MINIMAL OUTPUT NOTED. LEFT UPPER ARM PICC PATENT AND INTACT, TPN INFUSING ORDERED. ALL NEEDS WILL BE ATTENDED TO, SAFETY MEASURES TAKEN, BED IN LOW POSITION, SIDE RAILS UP, CALL LIGHT WITHIN REACH, WILL CONTINUE CARE.
[2020-08-20] MEDS: FAMOTIDINE/PF INJ 20 MG/2 ML VIAL IV SCH (08:36)
--- NOTE | 2020-08-20 09:17 | NUR ---
ICU/RN: HD STARTED, VSS, WILL CONTINUE TO MONITOR
[2020-08-20] MEDS: Magnesium 1GM/D5W 100ML PREMIX 100 ML IV SCH ×2 (10:36→11:47)
[2020-08-20 12:56] LABS: D-DIMER 6.19 mg/L(FEU (0.17-0.50)
[2020-08-20] MEDS: IV NS 0.9% 1,000 ML IV PRN (14:02)
[2020-08-20 14:41] LABS: PEEP,BG 5 cm H2O; VT, ABG 450 mL
[2020-08-20 14:50] LABS: ABG OXYGEN SATURATION 98.6 % (92.0-98.5); ABG PCO2 20.7 mmHg (35.0-45.0); ABG PH 7.561 (7.350-7.450); ABG PO2 230.4 mmHg (75.0-100.0); AaDO2 461.9 mmHg; COHb 2.4 % (0.5-1.5); MetHb 13.6 % (0.0-1.5); O2Hb 82.8 % (94.0-97.0); SITE, ABG Right Radial
[2020-08-20 14:52] LABS: ABG BASE EXCESS -4.9 mmol/L; ABG OXYGEN SATURATION 93.8 % (92.0-98.5); ABG PCO2 24.5 mmHg (35.0-45.0); ABG PH 7.479 (7.350-7.450); ABG PO2 73.7 mmHg (75.0-100.0); AaDO2 111.4 mmHg; COHb 2.9 % (0.5-1.5); MetHb 10.4 % (0.0-1.5); O2Hb 81.3 % (94.0-97.0); PEEP,BG 5 cm H2O; SITE, ABG Right Brachial; VT, ABG 450 mL
--- NOTE | 2020-08-20 17:33 | NUR ---
ICU/RN: CALLED BLOOD BANK, PLATELETS NOT READY AT THIS TIME, WILL FOLLOW UP AGAIN.
[2020-08-20] MEDS ORDERED: NEPRO 1,000 ML BOTTLE GT PRN (18:00)
--- NOTE | 2020-08-20 18:00 | NUR ---
ICU/RN: RECEIVED PHONE CALL FROM . TLO ORDERS RECEIVED TO START TUBE FEEDING AT 10ML/HR. TO MONITOR RESIDUAL AND TO STOP IF RESIDUAL IS >100. WILL FOLLOW THROUGH.
--- NOTE | 2020-08-20 19:05 | NUR ---
STONEMASON HELPER OPENING RECEIVED PT IN BED. PT IS ABLE TO OPEN EYES SPONTANEOUSLY AND RESPONDS TO TACTILE STIMULATION AND LIGHT PAIN. PT IS ON MECHANICAL VENTILATION. TRACH 7.0 ETT AT 21. VENT SETTINGS TV 450 FIO2 30% PEEP 5. PT IS NOT IN ANY RESPIRATORY DISTRESS, OR EXPERIENCING ANY SHORTNESS OF BREATH. O2 SATURATION IS 93% AT THIS TIME. PT HAS RESTRAINTS ON. CIRCULATION CHECKED. HOOKED UP TO LOW INTERMITTENT SUCTION ORDERED. PT HAS LEFT UA PICC LINE, FLUSHED ASEPTICALLY WITH GOOD BLOOD RETURN. PT HAS TPN AND 0.9 NS RUNNING ORDERED. PT HAS OSTOMY PRESENT, WITH NO STOOL MINIMAL BLOOD, CHECKED WITH AM NURSE, NO SIGNIFICANT CHANGE WITH MD AWARE. HAS DE LEON CATHETER DRAINING YELLOW URINE, CLEAR AND FREE OF SEDIMENT. SAFETY MEASURES IN PLACE. SIDE RAILS UP X2. BED LOCKED IN LOWEST POSITION. ID BAND ON BED ALARM ON. CALL LIGHT WITHIN REACH. WILL CONTINUE TO CLOSELY MONITOR.
--- NOTE | 2020-08-20 19:25 | NUR ---
ICU/RN: ENDING NOTES,AM REPORT ENDORSED TO NIGHT NURSE FOR LUCINDA. PLATELETS STILL NOT AVAILABLE, CALLED BLOOD BANK. TUBE FEEDING ORDER PLACED, WAITING FOR NUTRITION TO DELIVER. ALL NEEDS ATTENDED TO, PT CONTINUES ON SIMV MODE, NO DISTRESS NOTED, TOLERATING WELL. ALL NEEDS ATTENDED TO, SAFETY MEASURES TAKEN, BED IN LOW POSITION, SIDE RAILS UP, CALL LIGHT WITHIN REACH. WILL CONTINUE CARE
--- NOTE | 2020-08-20 19:53 | NUR ---
RT NOTE PT RECEIVED AWAKE/ALERT INTUBATED WITH 7.0 ET TUBE @ 21 CM LEFT LIP LINE. MOVED ET TUBE TO MID LIP LINE. SX DONE, SMALL THICK CERNA SECRETIONS NOTED. ALARMS ON AND AUDIBLE. VENT PLUGGED TO RED OUTLET. NO DISTRESS NOTED AT THIS TIME. WILL CONTINUE TO MONITOR CLOSELY. Addendum: 08/20/20 at 1954 by JIGNA PATEL RT Amended: Links added.
--- NOTE | 2020-08-20 22:30 | NUR ---
PT RECEIVED PLATELETS ORDERED. VERIFIED WITH ANOTHER RN. NO REACTIONS NOTED. VITAL SIGNS WNL. WILL CONTINUE TO MONITOR.
[2020-08-20] MEDS ORDERED: TPN BAG #7 IV PRN ×2 (23:00)
[2020-08-21] VITALS (24 sets, daily range): BP systolic 106–162; BP diastolic 48–94
--- NOTE | 2020-08-21 00:01 | NUR ---
NEW BAG TPN #7 ADMINISTERED WITH CHARGE NURSE. WILL CONTINUE TO CLOSELY MONITOR.
[2020-08-21] MEDS: METRONIDAZOLE 500MG/ NS 100ML 500 MG in PREMIX 1 EA IV SCH ×3 (01:00→17:41)
--- NOTE | 2020-08-21 02:59 | NUR ---
PT WAS GIVEN BED BATH AND LINEN CHANGE. OSTOMY BAG STILL EMPTY WITH SAME MINIMAL BLOOD NOTED.
[2020-08-21] MEDS: HYDROCORTISONE SOD SUCCINATE 100 MG/2 ML VIAL IV SCH ×3 (04:47→20:33)
[2020-08-21] MEDS: ANCEF 1 GM/50 ML D5W IV SCH ×6 (04:47→20:33)
[2020-08-21 05:00] LABS: BASOPHILS % (AUTO) 0.1 % (0.0-2.0); CALCIUM, SERUM 7.4 mg/dL (8.5-10.1); CARBON DIOXIDE 20 mmol/L (21-32); CHLORIDE 98 mmol/L (98-107); CREATININE 1.8 mg/dL (0.6-1.3); LYMPHOCYTES # (AUTO) 0.1 /CMM (0.8-4.8); LYMPHOCYTES % (AUTO) 1.5 % (20.0-44.0); MAGNESIUM 1.9 mg/dL (1.8-2.4); MEAN CORPUSCULAR HGB CONC 34 g/dl (31.0-36.0); MEAN CORPUSCULAR VOLUME 96 fL (82-100); MONOCYTES # (AUTO) 0.1 /CMM (0.1-1.30); MONOCYTES % (AUTO) 1.3 % (2.0-12.0); NEUTROPHILS # (AUTO) 5.3 /CMM (1.8-8.9); NEUTROPHILS % (AUTO) 97.1 % (43.0-81.0); PHOSPHORUS 2.9 mg/dL (2.5-4.9); SODIUM SERUM 128 mmol/L (136-145); UREA NITROGEN, BLOOD 74 mg/dL (7-18); WHITE BLOOD COUNT (AUTO) 5.5 K/uL (4.3-11.0)
[2020-08-21] MEDS: METOCLOPRAMIDE HCL 10 MG/2 ML VIAL IV SCH ×4 (05:19→23:04)
[2020-08-21] MEDS: BLOOD SUGAR DIAGNOSTIC 1 EACH STRIP IN SCH ×4 (05:21→23:18)
[2020-08-21 05:42] LABS: GLUCOSE 457 mg/dL (74-106); POTASSIUM 2.8 mmol/L (3.5-5.1)
[2020-08-21] MEDS: INSULIN REGULAR, HUMAN 100 UNIT/ML 3 ML VIAL SQ PRN ×3 (05:50→23:20)
--- NOTE | 2020-08-21 05:55 | NUR ---
RECEIVED CRITICAL LAB VALUES OF GLUCOSE 457 HGB 6.7 PLT 27 POTASSIUM 2.8 PAGED INFORMED COLD PATCHER MARIBEL MCCORMACK.
[2020-08-21 06:00] LABS: HEMATOCRIT 20 % (33-45)
--- NOTE | 2020-08-21 06:00 | NUR ---
INFORMED CHARGE NURSE REGARDING LABS. PENDING ORDERS.
[2020-08-21 06:01] LABS: HEMOGLOBIN 6.7 g/dL (11.5-14.8)
[2020-08-21 06:02] LABS: PLATELET COUNT (AUTO) 27 /CMM (150-450)
--- NOTE | 2020-08-21 06:05 | NUR ---
PER EASTON INTERFACE DEVELOPER, ORDERS FOR A REDRAW LABS BMP AND CBC AT THIS TIME.
[2020-08-21 06:20] LABS: BAND % (MANUAL) 3 % (0.0-5.0); LYMPHOCYTES % (MANUAL) 2 % (16-48); MONOCYTES % (MANUAL) 2 % (0-11.0); NEUTROPHILS % (MANUAL) 93 (42-76)
[2020-08-21 06:50] LABS: CALCIUM, SERUM 7.6 mg/dL (8.5-10.1); CARBON DIOXIDE 21 mmol/L (21-32); CHLORIDE 102 mmol/L (98-107); CREATININE 1.8 mg/dL (0.6-1.3); GLUCOSE 145 mg/dL (74-106); SODIUM SERUM 132 mmol/L (136-145); UREA NITROGEN, BLOOD 77 mg/dL (7-18)
--- NOTE | 2020-08-21 07:44 | NUR ---
RN CLOSING NOTES NO SIGNIFICANT CHANGES THROUGHOUT SHIFT. PT WAS AROUSABLE TO VERBAL STIMULATION IN ADDITION TO TACTILE. ABLE TO OPEN EYES AD NOD. PT DENIES PAIN AT THIS TIME. PT IS STILL ON MECHANICAL VENTILATION. NOW ON 50% FIO2. PT IS NOT IN DISTRESS OR EXPERIENCING SOB AT THIS TIME. BREATHING IS EVEN AND UNLABORED. PT IS SINUS RHYTHM HEART RATE OF 89 OF RIGHT NOW. PT STILL RECEIVING FLUIDS 30CC/HR OR NORMAL SALINE 0.9%. AND TPN OF 7OCC/HR. NGT FEEDING HELD ORDERED. EASTON AWARE. SAFETY MEASURES IN PLACE. RESTRAINTS STILL ON. HOB ELEVATED. SIDE RAILS UP X2. BED LOCKED IN LOWEST POSITION. ENDORSED TO AM NURSE REGARDING REDRAW WITH PT. INFORMED OF CRITICAL LAB RESULTS GIVEN AFTER 0500 LABS.
--- NOTE | 2020-08-21 08:00 | NUR ---
ICU/RN: INITIAL NOTES,AM RECEIVED REPORT FROM NIGHT NURSE. PT OPENS EYES, FOLLOWS SOME SIMPLE COMMANDS. PT INTUBATED ETT 7.0/21 CM AT THE LIP, ON VENT SETTINGS ORDERED BY MD, NO ACUTE DISTRESS NOTED. PT ON SIMV MOVE, TOLERATING WELL. DRAINING YELLOW URINE. COLOSTOMY BAG IN PLACE, NO OUTPUT AT THE TIME. NG TUBE TO LIS, MINIMAL OUTPUT NOTED. LEFT UPPER ARM PICC PATENT AND INTACT, TPN INFUSING ORDERED. ALL NEEDS WILL BE ATTENDED TO, SAFETY MEASURES TAKEN, BED IN LOW POSITION, SIDE RAILS UP, CALL LIGHT WITHIN REACH, WILL CONTINUE CARE.
[2020-08-21 08:07] LABS: IMMUNOGLOBULIN A, SERUM 336 mg/dL (64-422); IMMUNOGLOBULIN G, SERUM 708 mg/dL (586-1602); IMMUNOGLOBULIN M, SERUM 52 mg/dL (26-217)
[2020-08-21 08:15] LABS: HEMATOCRIT 23 % (33-45); HEMOGLOBIN 7.7 g/dL (11.5-14.8); LYMPHOCYTES # (AUTO) 0.1 /CMM (0.8-4.8); LYMPHOCYTES % (AUTO) 1.5 % (20.0-44.0); MEAN CORPUSCULAR HGB CONC 33 g/dl (31.0-36.0); MEAN CORPUSCULAR VOLUME 95 fL (82-100); MONOCYTES # (AUTO) 0.1 /CMM (0.1-1.30); MONOCYTES % (AUTO) 1.6 % (2.0-12.0); NEUTROPHILS # (AUTO) 6.2 /CMM (1.8-8.9); NEUTROPHILS % (AUTO) 96.9 % (43.0-81.0); RED BLOOD CELL COUNT(AUTO) 2.42 MIL/uL (4.0-5.2); WHITE BLOOD COUNT (AUTO) 6.4 K/uL (4.3-11.0)
[2020-08-21 08:26] LABS: PLATELET COUNT (AUTO) 24 /CMM (150-450)
[2020-08-21 08:51] LABS: ABG BASE EXCESS -5.4 mmol/L; ABG PCO2 21.4 mmHg (35.0-45.0); ABG PO2 90.8 mmHg (75.0-100.0); AaDO2 241.6 mmHg; COHb 2.3 % (0.5-1.5); MetHb 3.1 % (0.0-1.5); O2Hb 90.8 % (94.0-97.0); PEEP,BG 5 cm H2O; SITE, ABG Other; VENT MODE, BG SIMV 4 / PS 15; VT, ABG 450 mL
[2020-08-21] MEDS ORDERED: DC PROPOFOL WHEN EXTUBATED XX PRN (09:00)
[2020-08-21] MEDS: FAMOTIDINE (20 MG) 20 MG TABLET GT SCH (09:12)
--- NOTE | 2020-08-21 10:40 | NUR ---
pt. is awake and follow commands @ 1040 pt extubated as order and placed into nasal cannula @ 2 lpm o2 flow. no increased work of breathing noted. Addendum: 08/21/20 at 1043 by MISSY MURPHY RT Amended: Links added.
--- NOTE | 2020-08-21 10:45 | NUR ---
ICU/RN: PT EXTUBATED, PLACED ON NASAL CANULA. NO ACUTE DISTRESS NOTED. PT FOLLOWS COMMANDS. WILL CONTINUE TO MONITOR.
--- NOTE | 2020-08-21 11:00 | NUR ---
ICU/RN: PT NOTED TO DESAT, SWITCHED TO SIMPLE MASK THEN 15LITERS NRB, TOLERATING WELL. WILL CONTINUE TO MONITOR.
[2020-08-21] MEDS: POTASSIUM CL. PREMIX PERIPHER. 50 ML IV SCH ×6 (11:22→17:05)
[2020-08-21 12:04] LABS: ABG BASE EXCESS -5.9 mmol/L; ABG OXYGEN SATURATION 94.8 % (92.0-98.5); ABG PCO2 22.3 mmHg (35.0-45.0); ABG PH 7.488 (7.350-7.450); ABG PO2 80.8 mmHg (75.0-100.0); AaDO2 609.9 mmHg; COHb 2.2 % (0.5-1.5); MetHb 3.5 % (0.0-1.5); O2Hb 89.4 % (94.0-97.0); SITE, ABG Right Radial; VENT MODE, BG non rebreather
[2020-08-21 12:15] LABS: D-DIMER 4.31 mg/L(FEU (0.17-0.50)
[2020-08-21] MEDS ORDERED: TPN BAG #8 IV PRN ×2 (13:00)
[2020-08-21] MEDS ORDERED: PHYTONADIONE INJ 10 MG/1 ML AMPUL SQ ONE (17:00)
--- NOTE | 2020-08-21 19:10 | NUR ---
RN OPENING NOTES: RECEIVED PT A/OX2 IN BED RESTING COMFORTABLY. PATIENT IN NO S/SX OF ACUTE DISTRESS AT THIS TIME. NO SOB NOTED. PATIENT'S BREATHING IS EVEN AND UNLABORED. PATIENT IS ON 15 L OF OXYGEN VIA NRB MASK; TOLERATING WELL. PATIENT ON TELE MONITORING READING SINUS RHYTHM HR IS @90s AT THE TIME OF RECEIVED. NOTED NGT IN PLACED ON THE R NARE. PLACEMENT VERIFIED WITH AUSCULTATION. NO RESIDUAL TAKEN AT THIS TIME; CONNECTED TO LOW INTERMITTENT SUCTION. NOTED IV SITE ON L UA PICC LINE; PATENT, INTACT AND FLUSHING WELL; NO S/S OF INFECTION OR INFILTRATION. WITH IV FLUID RUNNING ORDERED. PT ALSO HAS R FEM HD CATH; SECURED AND INTACT. WITH DE LEON CATH IN PLACE, MINIMAL YELLOW COLORED URINE OUTPUT. PT HAS COLOSTOMY BAG ON THE R ABDOMINAL AREA, INTACT AND SECURED WITHOUT ANY SIGNS OF LEAK AND INFECTION. BILATERAL SOFT WRIST RESTRAINTS IN PLACE, ASSESSED PER PROTOCOL. PATIENT WITH VT PUMP ON . SAFETY MEASURES HAVE BEEN PROVIDED AND IMPLEMENTED. PATIENT BED ALARM IS ON. HEAD OF BED ELEVATED. BED IS LOCKED, IN LOWEST POSITION AND SIDE RAILS UP. CALL LIGHT WITHIN REACH OF THE PATIENT. APPLICABLE ISOLATION PRECAUTIONS IN PLACE. WILL CONTINUE TO MONITOR AND REASSESS FOR ANY CHANGES AND WILL CARRY OUT ANY ONGOING AND ACTIVE MD ORDER.
--- NOTE | 2020-08-21 19:22 | NUR ---
ICU/RN: ENDING NOTES,AM REPORT ENDORSED TO NIGHT NURSE FOR LUCINDA. PT EXTUBATED, ON 15L NRB MASK, TOLERATING WELL, NO ACUTE DISTRESS NOTED. SINUS ON TELE. DAUGHTER OF PT UPDATED OF PT CONDITION. SINUS ON TELE. TPN AND IVF INFUSING ORDERED, TOLERATING WELL. LEFT UPPER ARM PICC LINE PATENT AND INTACT. PT TURNED AND REPOSITIONED, BED BATH GIVEN, ALL NEEDS ATTENDED TO. ENDORSED REPORT FOR LUCINDA.
[2020-08-21] MEDS: IV NS 0.9% 1,000 ML IV PRN (21:09)
--- NOTE | 2020-08-21 22:00 | NUR ---
RN NOTES RN CHECK PLACEMENT of NG-TUBE (R NARE) , PLACEMENT VERIFIED AND CONFIRMED WITH ANOTHER RN (MY PHILLIPS) NO RESIDUAL TAKEN AT THIS TIME; CONNECTED TO LOW INTERMITTENT SUCTION. WILL CONTINUE TO ASSESS AND MONITOR THROUGHOUT THE SHIFT.
--- NOTE | 2020-08-21 23:20 | NUR ---
RN NOTES ACCU CHECK DONE- 134MG/DL; COVERAGE OF 2 UNITS INSULIN GIVEN PER PROTOCOL. WILL CONTINUE TO MONITOR AND ASSESS THROUGHOUT THE SHIFT.
[2020-08-22] VITALS (30 sets, daily range): BP systolic 91–159; BP diastolic 34–97
[2020-08-22] MEDS: METRONIDAZOLE 500MG/ NS 100ML 500 MG in PREMIX 1 EA IV SCH ×3 (01:01→17:49)
[2020-08-22] MEDS ORDERED: TPN BAG #9 IV PRN ×2 (02:00)
--- NOTE | 2020-08-22 02:00 | NUR ---
RN NOTES PATIENT REMAINS IN NO ACUTE RESPIRATORY DISTRESS AT THIS TIME, NO CHANGES TO CONDITION/STATUS. WILL CONTINUE TO MONITOR AND REASSESS FOR ANY CHANGES THROUGHOUT THE SHIFT
[2020-08-22 04:54] LABS: BASOPHILS % (AUTO) 0.6 % (0.0-2.0); HEMATOCRIT 23 % (33-45); HEMOGLOBIN 7.8 g/dL (11.5-14.8); LYMPHOCYTES # (AUTO) 0.1 /CMM (0.8-4.8); MEAN CORPUSCULAR HGB CONC 34 g/dl (31.0-36.0); MEAN CORPUSCULAR VOLUME 95 fL (82-100); MONOCYTES # (AUTO) 0.1 /CMM (0.1-1.30); NEUTROPHILS # (AUTO) 5.5 /CMM (1.8-8.9); NEUTROPHILS % (AUTO) 97.4 % (43.0-81.0); RED BLOOD CELL COUNT(AUTO) 2.41 MIL/uL (4.0-5.2); WHITE BLOOD COUNT (AUTO) 5.6 K/uL (4.3-11.0)
[2020-08-22 05:00] LABS: PLATELET COUNT (AUTO) 13 /CMM (150-450)
[2020-08-22 05:17] LABS: CALCIUM, SERUM 7.7 mg/dL (8.5-10.1); CARBON DIOXIDE 17 mmol/L (21-32); CHLORIDE 102 mmol/L (98-107); CREATININE 1.7 mg/dL (0.6-1.3); GLUCOSE 159 mg/dL (74-106); MAGNESIUM 1.5 mg/dL (1.8-2.4); PHOSPHORUS 2.8 mg/dL (2.5-4.9); POTASSIUM 3.4 mmol/L (3.5-5.1); SODIUM SERUM 132 mmol/L (136-145)
[2020-08-22] MEDS: HYDROCORTISONE SOD SUCCINATE 100 MG/2 ML VIAL IV SCH ×3 (05:18→20:17)
[2020-08-22] MEDS: METOCLOPRAMIDE HCL 10 MG/2 ML VIAL IV SCH ×4 (05:18→23:23)
[2020-08-22] MEDS: ANCEF 1 GM/50 ML D5W IV SCH ×6 (05:21→20:07)
[2020-08-22 05:46] LABS: UREA NITROGEN, BLOOD 88 mg/dL (7-18)
[2020-08-22 05:48] LABS: D-DIMER 10.08 mg/L(FEU (0.17-0.50)
--- NOTE | 2020-08-22 05:50 | NUR ---
RN NOTES @0500RECEIVED CALL FROM LAB, S/W [facility] CRITICAL LAB GIVEN ; PLATELET: 13 . @0545 RECEIVED CALL FROM LAB, S/W [facility] CRITICAL LAB GIVEN ; BUN: 88 COMMUNICATED WITH SHW[facility] AND INFORMED CRITICAL LAB, NO ORDER AT THIS TIME PER MD. MACHINIST JOB SETTER MADE AWARE.
--- NOTE | 2020-08-22 06:00 | NUR ---
RN NOTES ACCU CHECK DONE- 107MG/DL; NO COVERAGE AT THIS TIME PER PROTOCOL. WILL CONTINUE TO MONITOR AND ASSESS THROUGHOUT THE SHIFT.
[2020-08-22] MEDS: BLOOD SUGAR DIAGNOSTIC 1 EACH STRIP IN SCH ×4 (06:01→23:30)
[2020-08-22] MEDS: INSULIN REGULAR, HUMAN 100 UNIT/ML 3 ML VIAL SQ PRN ×4 (06:02→23:30)
[2020-08-22 06:39] LABS: BAND % (MANUAL) 8 % (0.0-5.0); LYMPHOCYTES % (MANUAL) 1 % (16-48); MONOCYTES % (MANUAL) 2 % (0-11.0); NEUTROPHILS % (MANUAL) 89 (42-76)
--- NOTE | 2020-08-22 06:53 | NUR ---
RN CLOSING NOTES PATIENT REMAINS IN ROOM IN NO SIGNS OF RESPIRATORY DISTRESS. PATIENT SATURATING 88-89% OF 02; MD AWARE. VITAL SIGNS TAKEN AND RECORDED. IV LINE MAINTAINED, INTACT, PATENT AND FLUSHING, NO SITE REDNESS OR INFILTRATION. SAFETY PRECAUTIONS IN PLACE AND COMFORT MEASURES RENDERED. BED IN LOWEST POSITION, CALL LIGHT WITHIN REACH, BREAKS ON, SIDE RAILS UP. ALL NEEDS ATTENDED, MEDICATIONS GIVEN SCHEDULED AND ORDERED ; SHIFT ASSESSMENT/BEDBATH/SKIN CARE DONE. PATIENT KEPT CLEAN AND DRY. WILL ENDORSE TO INCOMING SHIFT FOR LUCINDA WITH ALL PERTINENT INFO REGARDING PATIENT STATUS.
--- NOTE | 2020-08-22 07:15 | NUR ---
SCRUB WHEEL OPERATOR NOTES RECEIVED PATIENT AOX1 , LETHARGIC , ABLE TO FOLLOW SIMPLE COMMANDS , ON 15LPM SIMPLE MASK WITH SPO2 OF 97% , NO DISTRESS AT THIS TIME , SR 80 ON BEDSIDE MONITOR , R NARE NGT TO LOW INTERMITTENT SUCTION NO OUTPUT NOTED , R COLOSTOMY NOTED WITH BROWISHO SOFT OUTPUT WITH MINIMAL BLOOD NOTED , FC DRIANING VIA GRAVITY, BILATERAL SOFT WRIST RESTRAINS IN PLACE , ADE PICC LINE WITH NS @ 30ML.HR , TPN @ 70ML/HR INFUSING WELL , R FEMORAL HD CATH C/D/I , ALL NEEDS ATTENDED ,WILL CONTINUE TO MONITOR ,.
[2020-08-22] MEDS: FAMOTIDINE (20 MG) 20 MG TABLET GT SCH (08:24)
[2020-08-22 08:41] LABS: ABG BASE EXCESS -7.9 mmol/L; ABG OXYGEN SATURATION 97.9 % (92.0-98.5); ABG PCO2 22.9 mmHg (35.0-45.0); ABG PH 7.441 (7.350-7.450); ABG PO2 134.3 mmHg (75.0-100.0); AaDO2 555.8 mmHg; COHb 2.1 % (0.5-1.5); MetHb 2.4 % (0.0-1.5); O2Hb 93.5 % (94.0-97.0); SITE, ABG Left Radial; VENT MODE, BG NRB 100%
--- NOTE | 2020-08-22 10:02 | NUR ---
FINANCIAL SUPERVISOR NOTES SEEN AND EVALUATED BY DR WELCH , DISCUSSED THAT NGT ON LOW INTERMITTENT SUCTION HAS NO OUTPUT , ABDOMEN SOFT TO TOUCH NON TENDER , S/P EXTUBATION , PER MD OK TO START NGT FEEDING , WILL CONTINUE TO MONITOR.
[2020-08-22] MEDS ORDERED: POTASSIUM CHLORIDE 20 MEQ POWDER PACKET GT ONE (11:00)
[2020-08-22] MEDS ORDERED: NEPRO 1,000 ML BOTTLE GT PRN (11:00)
[2020-08-22] MEDS ORDERED: POTASSIUM CL. PREMIX PERIPHER. 50 ML IV SCH (11:00)
[2020-08-22] MEDS: Magnesium 1GM/D5W 100ML PREMIX 100 ML IV SCH ×2 (11:09→12:19)
--- NOTE | 2020-08-22 11:30 | NUR ---
MECHANIC FOREMAN NOTES SEEN AND EVALUATED DR EMERY WILL , DISCUSSE CURRENT LABS , NOTED WITH MINIMAL BLEEDING AT COLOSTOMY SITE , AOX1 ABLE TO FOLLOW COMMANDS , ELECTROLYTES WITH ONGOING REPLACEMENT , TPN @ 70ML;/HR , AFEBRILE , VS STABLE , WILL RESTART NGT FEEDING OF NEPHRO @ 10ML/HR PER DR WELCH , SUMAN AWARE CALLED PHARMACY TO VERIFY IF WE CAN TITRATE DOWN TPN PT WILL BE STARTED WITH NGT FEEDING OF NEPHRO @ 10ML/HR , PER TISHA IF PT WILL BE AT 10ML.HR CONTINUE TPN , WILL VERIFY WITH DR WELCH.
[2020-08-22 12:29] LABS: BILIRUBIN,DIRECT 0.3 mg/dL (0.0-0.2); BILIRUBIN,TOTAL 0.8 mg/dL (0.2-1.0); TOTAL PROTEIN, SERUM 4.2 g/dL (6.4-8.2)
[2020-08-22 12:31] LABS: ALBUMIN 1.2 g/dL (3.4-5.0)
--- NOTE | 2020-08-22 13:50 | NUR ---
LEAD OPERATOR NOTES PER DR WELCH CONTINUE TPN , AND KEEP PT ON NGT FEEDING OF NEPHRO @ 10ML./HR , WILL TITRATE TPN WE TRANSITION TO NGT FEEDING .
--- NOTE | 2020-08-22 16:00 | NUR ---
DESKTOP PUBLISHING OPERATOR NOTES MYRA HYBRID CORN BREEDER AT BEDSIDE , DISCUSSED PT CURRENT LABS , COLOSTOMY BAG NOTED WITH BROWNISH WITH BLOOD LIQUID OUTPUT MODERATE IN AMOUNT , HYBRID CORN BREEDER AT BEDSIDE SEEN AND ASSESSED THE COLOSTOMY BAG , PT NOTED WITH MULTIPLE BRUISES ON BILATERAL ARMS , HYBRID CORN BREEDER AWARE , WILL ORDER PLATELETS .
[2020-08-22] MEDS ORDERED: diphenhydrAMINE HCL 50 MG/ML VIAL IV ONE ×3 (16:30→22:00)
[2020-08-22] MEDS ORDERED: ACETAMINOPHEN 325 MG TABLET PO ONE ×2 (16:30→17:00)
--- NOTE | 2020-08-22 16:50 | NUR ---
PIECER NOTES DR WELCH NOTIFIED REGARDING BROWNISH OUTPUT WITH BLOOD IN COLOSTOMY BAG , DISCUSSED COLOSTOMY STOMA NOTED WITH PINK AND BLACK TISSUE , MD AWARE , OK TO CONTINUE NGT FEEDING ,
[2020-08-22] MEDS ORDERED: TPN BAG #10 IV PRN ×2 (18:00)
--- NOTE | 2020-08-22 19:15 | NUR ---
RN OPENING NOTES: RECEIVED PATIENT SLEEPING IN BED COMFORTABLY. PATIENT IN NO S/SX OF ACUTE DISTRESS AT THIS TIME. NO SOB NOTED. PATIENT'S BREATHING IS EVEN AND UNLABORED. PATIENT IS ON 15 L OF OXYGEN VIA NRB MASK; TOLERATING WELL. PATIENT ON TELE MONITORING READING SINUS RHYTHM HR IS @80s AT THE TIME OF RECEIVED. NOTED NGT IN PLACED ON THE R NARE. PLACEMENT VERIFIED WITH AUSCULTATION. PT ON G TUBE FEEING OF NEPRO @10ML/HR; PT TOLERATES WELL. NOTED IV SITE ON L UA PICC LINE; PATENT, INTACT AND FLUSHING WELL; NO S/S OF INFECTION OR INFILTRATION. WITH IV FLUID RUNNING ORDERED. PT ALSO HAS R FEM HD CATH; SECURED AND INTACT. WITH DE LEON CATH IN PLACE, MINIMAL YELLOW COLORED URINE OUTPUT. PT HAS COLOSTOMY BAG ON THE R ABDOMINAL AREA; WITH MINIMAL REDISH DRAIN NOTED; NTACT AND SECURED WITHOUT ANY SIGNS OF LEAK AND INFECTION; .PATIENT ON BILATERAL SOFT WRIST RESTRAINTS IN PLACE, ASSESSED PER PROTOCOL. PATIENT WITH VT PUMP ON . SAFETY MEASURES HAVE BEEN PROVIDED AND IMPLEMENTED. PATIENT BED ALARM IS ON. HEAD OF BED ELEVATED. BED IS LOCKED, IN LOWEST POSITION AND SIDE RAILS UP. CALL LIGHT WITHIN REACH OF THE PATIENT. APPLICABLE ISOLATION PRECAUTIONS IN PLACE. WILL CONTINUE TO MONITOR AND REASSESS FOR ANY CHANGES AND WILL CARRY OUT ANY ONGOING AND ACTIVE MD ORDER.
--- NOTE | 2020-08-22 19:23 | NUR ---
OIL FIELD PUMPER NOTES PATIENT STABLE AT THIS TIME AOX1 , LETHARGIC , ABLE TO FOLLOW SIMPLE COMMANDS , ON 15LPM SIMPLE MASK WITH SPO2 OF 92% , NO DISTRESS AT THIS TIME , SR 82 ON BEDSIDE MONITOR , R NARE NGT WITH NEPHRO @ 10ML/HR INFUSING WELL , , R COLOSTOMY NOTED WITH BROWNISH SOFT OUTPUT WITH MINIMAL BLOOD NOTED , FC DRIANING VIA GRAVITY, BILATERAL SOFT WRIST RESTRAINS IN PLACE , ADE PICC LINE WITH NS @ 30ML.HR , TPN @ 70ML/HR INFUSING WELL , R FEMORAL HD CATH C/D/I , ALL NEEDS ATTENDED ,REPORT GIVEN TO NIGHT NURSE FOR CONTINUITY OF CARE
[2020-08-22] MEDS ORDERED: ACETAMINOPHEN 650 MG/20.3 ML UDC NG ONE (22:00)
--- NOTE | 2020-08-22 22:00 | NUR ---
RN NOTES SAWMILLING OPERATOR CAME IN TO DO DIALYSIS SESSION FOR PATIENT. DIKE SUPERVISOR MADE AWARE. WILL CONTINUE TO MONITOR AND ASSESS.
--- NOTE | 2020-08-22 22:35 | NUR ---
RN NOTES STARTED BLOOD TRANSFUSION 1 BAG OF PRBC ORDERED PER PROTOCOL; ADMINISTERED VIA DIALYSIS. INITIAL VITAL SIGNS TAKEN; WNL. WILL CONTINUE TO MONITOR FOR ANY BLOOD TRANSFUSION REACTION AND ADDRESS NEEDED EDGE BANDING MACHINE OFFBEARER MADE AWARE.
--- NOTE | 2020-08-22 23:15 | NUR ---
RN NOTES ENDED BLOOD TRANSFUSION VIA DIALYSIS @ 8805, NO TRANSFUSION REACTION NOTED. VITAL SIGNS STABLE. RESEARCH ARCHAEOLOGIST MADE AWARE. WILL CONTINUE TO MONITOR AND REASSESS FOR ANY TRANSFUSION REACTION POST PROCEDURE.
[2020-08-23] VITALS (39 sets, daily range): BP systolic 59–134; BP diastolic 31–70
--- NOTE | 2020-08-23 00:30 | NUR ---
RN NOTES PARQUET FLOOR LAYER INFORMED PRIMARY RN THAT SESSION DONE, NO OUTPUT AND JUST CLEARANCE, BP IS AT124/61 AND HR IS AT 99. PT TOLERATED PROCEDURE. CIVIL CAD DESIGNER MADE AWARE.
[2020-08-23] MEDS: METRONIDAZOLE 500MG/ NS 100ML 500 MG in PREMIX 1 EA IV SCH (01:43)
--- NOTE | 2020-08-23 03:00 | NUR ---
RN NOTES PATIENT REMAINS IN NO ACUTE RESPIRATORY DISTRESS AT THIS TIME, NO CHANGES TO CONDITION/STATUS. HAND MODEL WELL AWARE. WILL CONTINUE TO MONITOR AND REASSESS FOR ANY CHANGES THROUGHOUT THE SHIFT
[2020-08-23] MEDS: HYDROCORTISONE SOD SUCCINATE 100 MG/2 ML VIAL IV SCH ×2 (04:04→12:04)
[2020-08-23] MEDS: ANCEF 1 GM/50 ML D5W IV SCH ×2 (04:05)
[2020-08-23] MEDS: METOCLOPRAMIDE HCL 10 MG/2 ML VIAL IV SCH ×2 (05:15→12:04)
[2020-08-23] MEDS: BLOOD SUGAR DIAGNOSTIC 1 EACH STRIP IN SCH ×2 (05:26→12:14)
[2020-08-23] MEDS: INSULIN REGULAR, HUMAN 100 UNIT/ML 3 ML VIAL SQ PRN ×2 (05:28→12:19)
[2020-08-23] MEDS: PHENYLEPHRINE 100 MG in IV NS 0.9% 240 ML IV PRN (05:35)
[2020-08-23 05:49] LABS: CALCIUM, SERUM 7.4 mg/dL (8.5-10.1); CARBON DIOXIDE 18 mmol/L (21-32); CHLORIDE 102 mmol/L (98-107); CREATININE 1.4 mg/dL (0.6-1.3); GLUCOSE 259 mg/dL (74-106); MAGNESIUM 1.7 mg/dL (1.8-2.4); PHOSPHORUS 2.4 mg/dL (2.5-4.9); POTASSIUM 2.9 mmol/L (3.5-5.1); SODIUM SERUM 129 mmol/L (136-145); UREA NITROGEN, BLOOD 68 mg/dL (7-18)
[2020-08-23 05:58] LABS: BASOPHILS % (AUTO) 0.3 % (0.0-2.0); EOSINOPHILS % (AUTO) 0.2 % (0.0-6.0); HEMATOCRIT 26 % (33-45); HEMOGLOBIN 8.9 g/dL (11.5-14.8); LYMPHOCYTES # (AUTO) 0.1 /CMM (0.8-4.8); LYMPHOCYTES % (AUTO) 7.6 % (20.0-44.0); MEAN CORPUSCULAR HGB CONC 34 g/dl (31.0-36.0); MEAN CORPUSCULAR VOLUME 95 fL (82-100); MONOCYTES % (AUTO) 1.5 % (2.0-12.0); NEUTROPHILS # (AUTO) 0.6 /CMM (1.8-8.9); NEUTROPHILS % (AUTO) 90.4 % (43.0-81.0); RED BLOOD CELL COUNT(AUTO) 2.79 MIL/uL (4.0-5.2)
[2020-08-23 06:01] LABS: PLATELET COUNT (AUTO) 4 /CMM (150-450); WHITE BLOOD COUNT (AUTO) 0.7 K/uL (4.3-11.0)
--- NOTE | 2020-08-23 06:06 | NUR ---
RN NOTES RECEIVED CALL FROM LAB CRITICAL LAB VALUE OF THE FOLLOWING: WBC: 0.7 PLATELET: 4 COMMUNICATED WITH [facility] AND INFORMED ABOUT CRITICAL LAB, ADVISED [facility] THAT 1 PRBC TRANSFUSED THIS CHIKIS AND AWAITING FOR 1 BAG PLATELET FROM LAB ( NOT YET GIVEN) . READ BBACK TELPEPHONE ORDER FOR ANOTHER BAG OF PLATELET. VENTILATING EXPERT MADE AWARE. WILL CARRYOUT ORDER REQUESTED
[2020-08-23 06:09] LABS: D-DIMER 8.37 mg/L(FEU (0.17-0.50)
--- NOTE | 2020-08-23 06:15 | NUR ---
RN NOTES PATIENT NOTED TO BE LETHARGIC AND NON RESPONSIVE, VACUUM APPLICATOR OPERATOR MADE AWARE. ER MD NOTIFIED FOR ASSESSMENT. PROVIDED REPORT TO ER MD AT BEDSIDE AND EVALUATION DONE BY ER MD, STAT ABG DONE. EMERGENCY INTUBATION DONE, VACUUM APPLICATOR OPERATOR WELL AWARE. ONCALL MADE AWARE. WILL CONTINUE TO MONITOR AND ASSESS THROUGHOUT THE SHIFT.
--- NOTE | 2020-08-23 06:40 | NUR ---
RT NOTE PT REC'D ON NRB MASK @ 15LPM. PT SHOWED SIGNS OF LETHARGY AND RESPIRATORY DISTRESS. STAT ABG TAKEN AND CRITICAL RESULTS GIVEN TO COMPLIANCE PARALEGAL. PT ORALLY INTUBATED VIA ETT #7.5 SECURED AT 22CM AT THE LIPLINE. BILATERAL BREATH SOUNDS HEARD ON AUSCULTATION. COLOR CHANGE VIA CO2 DETECTOR NOTED. PT PLACED ON MECH VENT ON AC MODE SETTINGS CHARTED. ABG TO BE TAKEN WITHIN 1 HR. WAITING FOR CHEST XRAY RESULTS. ALARMS ARE SET AND AUDIBLE. AMBU BAG BEDSIDE. VENT PLUGGED INTO RED OUTLET. WILL CONTINUE TO MONITOR CLOSELY Addendum: 08/23/20 at 0646 by GERSON ORTIZ RT Amended: Links added.
--- NOTE | 2020-08-23 07:07 | NUR ---
RADIOGRAPHER MAMMOGRAPHER CLOSING NOTES PATIENT IN BED, ORALLY INTUBATED WITH TUBE SIZE 7.5 AT 24CM ON THE LIP, NO SEDATION WITH VENT SETTING OF AC: 20 TV : 450 FIO2: 100 PEEP 5 TOLERATING VENT SETTINGS ORDERED. NO SIGNS OF ACUTE DISTRESS. BREATHING EVEN AND UNLABORED. TELE MONITORS READING SR ( 83 ). VITAL SIGNS WNL.( RECENT VITALS FOLLOWS: BP: 106/48, HR: 83, RR: 20 O2 SAT: 80% IV LINE REMAINED PATENT AND INTACT WITHIN END OF SHIFT. SAFETY PRECAUTIONS IN PLACE WITH BED IN LOWEST POSITION, CALL LIGHT WITHIN REACH, BREAKS ON, SIDE RAILS UP. ALL NEEDS ATTENDED TO; SHIFT ASSESSMENT/BEDBATH/SKIN/WOUND CARE DONE. PATIENT KEPT CLEAN AND DRY. WILL ENDORSE TO ONCOMING SHIFT FOR LUCINDA WITH ALL PERTINENT INFO REGARDING PATIENT STATUS.
--- NOTE | 2020-08-23 07:15 | NUR ---
INSTRUCTOR BALLROOM DANCING NOTES RECEIVED PATIENT S/P INTUBATION , ORALLY INTUBATED ETT 7.5 AT 24CM ON THE LIP, UNRESPONSIVE , PUPILS 1MM NON REACTIVE , WITH VENT SETTING OF AC: 20 TV : 450 FIO2: 100 PEEP 5 TOLERATING VENT SETTINGS ORDERED , SR 85 OB BEDSIDE MONITOR , BOWEL SOUNDS ABSENT , NGT FEEDING HELD , GAG AND COUG REFLEX ABSENT , ADE PICC LINE WITH TPN @ 70ML/HR , NEOSYENPRINE @ 2.5 MCG/KG/MIN , NS @ 30ML/HR INFUSING WELL , R FEMORAL HD CATH WITH PIGTAIL IN PLACE , WILL CONTINUE TO MONITOR .
[2020-08-23] MEDS: IV NS 0.9% 1,000 ML IV PRN (07:17)
[2020-08-23] MEDS ORDERED: POTASSIUM CHLORIDE 20 MEQ POWDER PACKET GT SCH (08:00)
[2020-08-23] MEDS ORDERED: NOREPINEPHRINE 32 MG in IV NS 0.9% 218 ML IV PRN (08:00)
[2020-08-23] MEDS ORDERED: TPN BAG #11 IV PRN ×4 (08:00→10:00)
[2020-08-23 08:25] LABS: ABG BASE EXCESS -19.4 mmol/L; ABG OXYGEN SATURATION 73.2 % (92.0-98.5); ABG PCO2 56.1 mmHg (35.0-45.0); ABG PH 6.948 (7.350-7.450); ABG PO2 55.4 mmHg (75.0-100.0); AaDO2 601.5 mmHg; COHb 1.8 % (0.5-1.5); MetHb 1.5 % (0.0-1.5); O2Hb 70.8 % (94.0-97.0); SITE, ABG Left Brachial; VENT MODE, BG AC 20 500 100% +
--- NOTE | 2020-08-23 08:26 | NUR ---
SALES OPERATIONS MANAGER NOTES NOTIFIED DR JOSUE REGARDING CVP READING OF 3MMHG , PER MD GIVE IVF OF NS @ 20ML X2 L , NOTIFIED MD THAT WE WILL START BICARB DRIP D5W WITH 150 MEQ NA BICARB @ 100ML/HR DUE TO ABG OF PH 7.948 , PCO2 56.1 , P02 55.4 , HCO2 12.0 , PER MD DISREGARD 250 ML/HR IVF OF NS X2L ,
[2020-08-23] MEDS ORDERED: Sodium Bicarbonate 150 MEQ in IV D5W 1,000 ML IV ONE (08:30)
[2020-08-23] MEDS: Magnesium 1GM/D5W 100ML PREMIX 100 ML IV SCH ×2 (08:34→09:34)
[2020-08-23] MEDS: FAMOTIDINE (20 MG) 20 MG TABLET GT SCH (08:34)
[2020-08-23 08:50] LABS: ABG BASE EXCESS -14.4 mmol/L; ABG OXYGEN SATURATION 71.4 % (92.0-98.5); ABG PCO2 35.8 mmHg (35.0-45.0); ABG PH 7.175 (7.350-7.450); ABG PO2 43.6 mmHg (75.0-100.0); AaDO2 633.6 mmHg; COHb 1.9 % (0.5-1.5); MetHb 1.3 % (0.0-1.5); O2Hb 69.1 % (94.0-97.0); SITE, ABG Left Radial; VENT MODE, BG NRB MASK
--- NOTE | 2020-08-23 09:25 | NUR ---
CLOTH EXAMINER NOTES SEEN AND EVALUATED BY DR HECK , DISCUSSED CRITICAL LABS , ABG AND CHEST XRAY RESULTS , CURRENTLY INTUBATED VENT SETTINGS ORDERED , PT UNRESPONSIVE , GAG COUGH AND BOWEL SOUNDS ARE ABSENT , NGT FEEDING HELD , NO BLEEDING NOTED , PT ON NEOSYNEPRINE @ 3MCG/KG/MIN , LEVOPHED @ 0.1MCG/KG/MIN , D5W NA BICARB 3 AMPS @ 100ML/HR , TPN @ 7ML/HR , HYPOTHERMIC ON AMIE HUGGER CURRENT TEMP OF 95.5 VIA CORE , Neelam ARCEO NGT NO OUTPUT , AWARE .
[2020-08-23] MEDS ORDERED: VANCOMYCIN 1 GM in IV D5W 250 ML IV ONE (10:00)
--- NOTE | 2020-08-23 10:07 | NUR ---
QUALITY CONTROL LEAD NOTES NOTIFIED DR COSTA REGARDING PT ABG RESULTS , DISCUSSED PT IS NON RESPONSIVE , GAG / COUGH REFLEX ABSENT , NEOSYNEPRINE MAX , LEVOPHED AT 0.1MCGH/KG/MIN , NA BICARB 3AMPS @ 100ML/HR INFUSING, ABSENT BOWEL SOUND , COLOSTOMY NO ACTIVE BLEEDING AT THIS TIME ,NGT FEEDING HELD MD AWARE , AWAITING FOR ORDERS ,
[2020-08-23 10:08] LABS: ABG BASE EXCESS -23.2 mmol/L; ABG OXYGEN SATURATION 74.7 % (92.0-98.5); ABG PCO2 52.6 mmHg (35.0-45.0); ABG PH 6.867 (7.350-7.450); AaDO2 600.4 mmHg; COHb 1.3 % (0.5-1.5); MetHb 1.4 % (0.0-1.5); O2Hb 72.7 % (94.0-97.0); PEEP,BG 8 cm H2O; SITE, ABG Left Brachial; VT, ABG 450 mL
[2020-08-23] MEDS ORDERED: ETOMIDATE 2 MG/ML VIAL IV ONE (10:29)
[2020-08-23] MEDS ORDERED: ROCURONIUM BROMIDE 50 MG/5 ML IV ONE (10:29)
--- NOTE | 2020-08-23 10:50 | NUR ---
OIL WELL SERVICES SUPERINTENDENT NOTES RT NOTIFIED DR COSTA REGARDING ABG RESULTS AND CURRENT VENT SETTINGS , SPO2 UNABLE TO OBTAINED , AWAITING FOR ORDERS
[2020-08-23] MEDS ORDERED: ZOSYN IVPB 2.25 G in IV D5W 50ml IV SCH ×2 (11:00→12:00)
--- NOTE | 2020-08-23 11:20 | NUR ---
BALLING HEAD TENDER NOTES NOTIFIED DR TYLER REGARDING CRITICAL CBC AND DIC AND FIBRINOGEN RESULTS , NO ACTIVE BLEEDING AT THIS TIME , RE INTUBATED TODAY , GCS 3 COUGH , BOWEL AND BOWEL SOUND ABSENT , MD AWARE , PER MD GIVE GRANIX 300MCG SQ DAILY AND 2 UNITS OF FFP , DISCUSSED THAT 2 UNITS OF PLATELETS STILL PENDING , MD AWARE
[2020-08-23] MEDS ORDERED: TBO-FILGRASTIM 300 MCG/0.5 ML SYRINGE SQ SCH (12:00)
[2020-08-23] MEDS ORDERED: MORPHINE SULFATE PF DRIP 250 MG in IV D5W 240 ML IV PRN ×2 (13:00→13:30)
--- NOTE | 2020-08-23 13:01 | NUR ---
AUTOMOBILE ENGINE ASSEMBLER NOTES DR COSTA AT BEDSIDE DISCUSSING PLAN OF CARE TO FAMILY , PER FAMILY THE WANT TO DO COMFORT MEASURES , DR COSTA WILL PUT ON ORDERS , CALLED EPIC LINE TO NOTIFY DR HECK REGARDING PLAN OF CARE
[2020-08-23] MEDS ORDERED: MORPHINE SULFATE INJ 2 MG/ML DISP.SYRIN IV ONE ×3 (13:20→14:30)
[2020-08-23] MEDS ORDERED: IPRATROPIUM NEB FS 0.5 MG/2.5 ML AMPUL.NEB NEB SCH (13:30)
[2020-08-23] MEDS ORDERED: LORAZEPAM INJ 2 MG/ML VIAL IV PRN ×2 (13:30)
[2020-08-23] MEDS ORDERED: ALBUTEROL FS 2.5 MG/0.5 ML VIAL.NEB NEB SCH (13:30)
[2020-08-23] MEDS ORDERED: SCOPOLAMINE PATCH 1 MG/72HR TD PRN (13:30)
--- NOTE | 2020-08-23 14:32 | NUR ---
COMPUTER NUMERICAL CONTROL OPERATOR NOTES MEDICATION AND DRIP DISCONTINUED , IVP MORPHIBE 2MG GIVEN , MORPHINE DRIP INFUSING @ 2MG/HR , WILL CONTINUE TO MONITOR .
--- NOTE | 2020-08-23 14:35 | NUR ---
LABORATORY TECHNOLOGY TEACHER NOTES PT @ 1435 , NO AUDIBLE HEART TONE UPON AUSCULTATION , ASYSTOLE , NO BP , PUPILS FIXED, NO CODE CALLED PT IS ON COMFORT MEASURES PRONOUNCE BY PEYTON RN , DAUGHTER AT BEDSIDE , NURSING MOLDER FLOOR , ADMITTING AND PRIMARY CARE PHYSICIAN NOTIFIED , WILL CALL [facility] ,
[2020-08-23 14:59] LABS: BAND % (MANUAL) 1 % (0.0-5.0); LYMPHOCYTES % (MANUAL) 14 % (16-48); MONOCYTES % (MANUAL) 6 % (0-11.0); NEUTROPHILS % (MANUAL) 79 (42-76)
--- NOTE | 2020-08-23 15:39 | NUR ---
DRY CANS BACK TENDER NOTES PT BODY TRANSFERED [place] [facility] [place]OMPAN[place] BY SECURITY , TAGS LABELED AND APPLIED OUTSIDE THE BAG AND TOE , ID BAND INPLACE . FAMILY SIGNED THE RELEASE OF BODY TO THE [facility] ,
[2020-08-23] MEDS ORDERED: TPN BAG #12 IV PRN ×2 (23:00)
[2020-08-24] MEDS ORDERED: VANCOMYCIN 500 MG in IV D5W 100 ML IV PRN (10:00)
[2020-08-24] MEDS ORDERED: TPN BAG #13 IV PRN ×2 (12:00)
[2020-08-25 14:08] LABS: *SPE A/G RATIO 0.8 (0.7-1.7); *SPE ALBUMIN 1.9 g/dL (2.9-4.4); *SPE ALPHA-1-GLOBULIN 0.4 g/dL (0.0-0.4); *SPE ALPHA-2-GLOBULIN 0.7 g/dL (0.4-1.0); *SPE BETA GLOBULIN 0.6 g/dL (0.7-1.3); *SPE GLOBULIN, TOTAL 2.4 g/dL (2.2-3.9); *SPE M-SPIKE Not Observed g/dL (Not Observed); *SPEGAMMA GLOBULIN 0.8 g/dL (0.4-1.8)
== END 2020-08-23 14:35 | disposition expired | DRG 329 ==
LOC: ER 16:03 → MEDSG1 20:12 → MED 21:30 → TELE1 08-12 14:13 → MED 08-15 05:10 → ICU 08-15 17:25
PROVIDERS: ADMIT Student in an Organized Health Care Education/Training Program; ATTEND Family Medicine
PROC: 06HY33Z Insertion of Infusion Device into Lower Vein, Percutaneous Approach (ICD-10-PCS; principal; 2020-08-14)
PROC: 06HY33Z Insertion of Infusion Device into Lower Vein, Percutaneous Approach (ICD-10-PCS; 2020-08-14)
PROC: 0DTF4ZZ Resection of Right Large Intestine, Percutaneous Endoscopic Approach (ICD-10-PCS; 2020-08-15)
PROC: 0D1L4Z4 Bypass Transverse Colon to Cutaneous, Percutaneous Endoscopic Approach (ICD-10-PCS; 2020-08-15)
PROC: 5A1955Z Respiratory Ventilation, Greater than 96 Consecutive Hours (ICD-10-PCS; 2020-08-15)
PROC: 0BH17EZ Insertion of Endotracheal Airway into Trachea, Via Natural or Artificial Opening (ICD-10-PCS; 2020-08-15)
PROC: 5A1D70Z Performance of Urinary Filtration, Intermittent, Less than 6 Hours Per Day (ICD-10-PCS; 2020-08-16)
PROC: 30233N1 Transfusion of Nonautologous Red Blood Cells into Peripheral Vein, Percutaneous Approach (ICD-10-PCS; 2020-08-18)
PROC: 30233R1 Transfusion of Nonautologous Platelets into Peripheral Vein, Percutaneous Approach (ICD-10-PCS; 2020-08-20)
PROC: 5A1935Z Respiratory Ventilation, Less than 24 Consecutive Hours (ICD-10-PCS; 2020-08-23)
PROC: 0BH17EZ Insertion of Endotracheal Airway into Trachea, Via Natural or Artificial Opening (ICD-10-PCS; 2020-08-23)
DX: K55.049 Acute infarction of large intestine, extent unspecified (principal); N17.0 Acute kidney failure with tubular necrosis; J96.01 Acute respiratory failure with hypoxia; G92 Toxic encephalopathy; I21.A1 Myocardial infarction type 2; E87.0 Hyperosmolality and hypernatremia; J90 Pleural effusion, not elsewhere classified; J98.11 Atelectasis; D68.9 Coagulation defect, unspecified; D62 Acute posthemorrhagic anemia; D61.818 Other pancytopenia; E87.1 Hypo-osmolality and hyponatremia; E87.2 Acidosis; K55.9 Vascular disorder of intestine, unspecified; Z66 Do not resuscitate; Z51.5 Encounter for palliative care; E86.0 Dehydration; M81.0 Age-related osteoporosis without current pathological fracture; F03.90 Unspecified dementia, unspecified severity, without behavioral disturbance, psychotic disturbance, mood disturbance, and anxiety; F32.9 Major depressive disorder, single episode, unspecified; Z99.2 Dependence on renal dialysis; Z20.828 Contact with and (suspected) exposure to other viral communicable diseases; E78.5 Hyperlipidemia, unspecified; E83.42 Hypomagnesemia; D63.8 Anemia in other chronic diseases classified elsewhere; Z90.49 Acquired absence of other specified parts of digestive tract; Z79.83 Long term (current) use of bisphosphonates; Z79.899 Other long term (current) drug therapy; I70.0 Atherosclerosis of aorta; I12.9 Hypertensive chronic kidney disease with stage 1 through stage 4 chronic kidney disease, or unspecified chronic kidney disease; N18.9 Chronic kidney disease, unspecified; E88.09 Other disorders of plasma-protein metabolism, not elsewhere classified; D69.59 Other secondary thrombocytopenia; F39 Unspecified mood [affective] disorder; M19.90 Unspecified osteoarthritis, unspecified site; E87.6 Hypokalemia
CPT/HCPCS: 31720; 36415; 36569; 36600; 71045-TC; 74018; 74250-TC; 76700-TC; 80048-TC; 80053-TC; 80061-TC; 80076-TC; 81001; 82533; 82570-TC; 82728-TC; 82784; 82803-TC; 82962-TC; 83540-TC; 83690-TC; 83735-TC; 84100-TC; 84155; 84155-TC; 84165; 84300-TC; 84443-TC; 84484-TC; 85025-TC; 85396; 85652-TC; 86022; 86225; 86235; 86334; 86431-TC; 86706; 86803; 86850-TC; 87040-TC; 87081-TC; 87086-TC; 87340; 88309-TC; 90935-TC; 93307-TC; 94002-TC; 94003-TC; 94760-TC; 94799-TC; A4216; A6209; C1751; C9113; C9803; G0378; J0690; J1170; J1200; J1442; J1644; J1720; J1815; J2250; J2270; J2274; J2370; J2405; J2543; J2704; J2765; J2916; J3010; J3370; J3430; J3475; J3480; J3490; J7030; J7040; J7042; J7050; J7060; J7070; J7120; P9016-BL; P9034-BL; Q9963; U0003